=== PATIENT | female | born 1965 | race Caucasian/White ===

== ENCOUNTER 2017-11-22 18:24 | Emergency (ER) | payer OTHER ==
--- OUTSIDE RECORDS SUMMARY | 2017-11-22 18:26 | XMS REPORT ---
:1965 [facility] Address [address] [place] [address] [address] Care Team Providers Name Role Phone DR YEHUDA GONZALEZ Unavailable Unavailable Problems This patient has no known problems. Allergies, Adverse Reactions, Alerts This patient has no known allergies or adverse reactions. Medications This patient has no known medications. Encounters Start End Encounter Admission Attending Care Care Encounter Date/Time Date/Time Type Type Clinicians Facility Department ID 2016-06-25 2016-06-25 Outpatient DENISE FLETCHER [facility] [place] [id number] 04:40:00 07:45:00 YEHUDA
[2017-11-22] MEDS ORDERED: NA CHLORIDE 0.9% 1,000 ML ONE (18:57)
[2017-11-22 19:05] LABS: Absolute Lymphocytes (CBC) 3.9 K/uL (0.7-4.9); Absolute Monocytes 0.5 K/uL (0.1-1.3); Absolute Neutrophil 6.3 K/uL (1.8-8.0); Basophils % 0.7 % (0-1.3); Eosinophils % 2.1 % (0-4.4); Hematocrit 39.7 % (36.0-45.0); Lymphocytes % 35.3 % (15.3-44.8); MCH 29.7 pg (27.0-35.0); MCV 87.2 fL (80-100); MPV 8.3 fL (7.6-11.3); Monocytes % 4.5 % (3.3-12.3); RBC Red Blood Cell Count 4.55 M/uL (3.86-4.86)
[2017-11-22 19:13] LABS: Bicarbonate 22 mEq/L (21-31); Glucose Level 120 mg/dL (65-120); Lipase 40 U/L (22-51); Potassium 3.3 mEq/L (3.6-5.0); Sodium Level 138 mEq/L (135-145)
[2017-11-22 19:19] LABS: ALT/SGPT 28 IU/L (10-60); AST/SGOT 30 IU/L (10-42); Albumin 4.2 g/dL (3.2-5.5); Alkaline Phosphatase 113 IU/L (42-121); BUN Blood Urea Nitrogen 14 mg/dL (6-20); Bilirubin Direct < 0.1 mg/dL (0-0.2); Bilirubin Total 0.6 mg/dL (0.3-1.2); Protein, Total 7.4 g/dL (6.0-8.3)
--- NOTE | 2017-11-22 19:31 | RAD REPORT ---
EXAM DESCRIPTION: RAD - Foot Right 3 View - 11/22/2017 7:20 pm CLINICAL HISTORY: Right foot pain status post injury FINDINGS: An oblique fracture involves the base of the first distal phalanx extending intraarticular ly. A nondisplaced fracture of the distal aspect of the first proximal phalanx is seen. No dislocation is noted
[2017-11-22 19:57] LABS: Urine Blood NEGATIVE (NEG); Urine Glucose NEGATIVE (NEG); Urine Protein NEGATIVE (NEG); Urine Specific Gravity 1.015 (1.005-1.030); Urine pH 8.5 (5.0-7.0)
[2017-11-22] MEDS ORDERED: FENTANYL CITR 100 MCG/2 ML ONE (20:03)
[2017-11-22] MEDS ORDERED: ONDANSETRON 4 MG/2 ML VIAL ONE (20:03)
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
[2017-11-22] MEDS ORDERED: CEFTRIAXONE/SWI 1gm 1 GM/10 ML SYR ONE (20:20)
[2017-11-22] MEDS ORDERED: POTASSIUM CL SA 10 MEQ TAB PO ONE (20:21)
[2017-11-22 21:18] VITALS: TEMP 98.8
[2017-11-22 21:21] VITALS: BP 141/83; O2SAT 99
== END 2017-11-22 21:01 | disposition home or self-care (01) ==
LOC: ER 18:24
DX: S92.424A Nondisplaced fracture of distal phalanx of right great toe, initial encounter for closed fracture (principal); S92.414A Nondisplaced fracture of proximal phalanx of right great toe, initial encounter for closed fracture; S20.219A Contusion of unspecified front wall of thorax, initial encounter; R10.819 Abdominal tenderness, unspecified site; E87.6 Hypokalemia; N30.90 Cystitis, unspecified without hematuria; V89.2XXA Person injured in unspecified motor-vehicle accident, traffic, initial encounter; Z88.1 Allergy status to other antibiotic agents; Z88.5 Allergy status to narcotic agent
CPT/HCPCS: 36415; 70450; 71260; 72125; 74177; 80048; 80076; 81003; 81025; 83690; 85025; 86850; 86900; 86901; 87086; 87088; 96361; 96365; 96375; 99284; J0696; J2405; J3010; J7030; Q9967

== ENCOUNTER 2018-06-01 08:06 | Emergency (ER) | payer OTHER ==
--- OUTSIDE RECORDS SUMMARY | 2018-06-01 08:08 | XMS REPORT ---
:1965 [facility] Address [address] [place] [address] [facility]. [address] [place] [address] Care Team Providers Name Role Phone DR YEHUDA GONZALEZ Unavailable Unavailable Problems This patient has no known problems. Allergies, Adverse Reactions, Alerts This patient has no known allergies or adverse reactions. Medications This patient has no known medications. Encounters Start End Encounter Admission Attending Care Care Encounter Date/Time Date/Time Type Type Clinicians Facility Department ID 2016-06-25 2016-06-25 Out[place] [facility] [place] [id number] 04:40:00 07:45:00 YEHUDA
[2018-06-01 08:51] LABS: Absolute Monocytes 0.5 K/uL (0.1-1.3); Absolute Neutrophil 6.2 K/uL (1.8-8.0); Basophils % 0.7 % (0-1.3); Eosinophils % 2.2 % (0-4.4); Hematocrit 41.9 % (36.0-45.0); Lymphocytes % 30.1 % (15.3-44.8); MCH 29.8 pg (27.0-35.0); MCV 87.2 fL (80-100); Monocytes % 4.9 % (3.3-12.3); RBC Red Blood Cell Count 4.81 M/uL (3.86-4.86)
[2018-06-01 08:55] LABS: Protime INR 0.92
--- NOTE | 2018-06-01 08:56 | RAD REPORT ---
EXAM DESCRIPTION: CT - Head Brain Wo Cont - 06/01/2018 8:45 am CLINICAL HISTORY: Dizziness COMPARISON: October 2017 TECHNIQUE: Computed axial tomography of the head was obtained. IV contrast was not requested. All CT scans are performed using dose optimization technique as appropriate and may include automated exposure control or mA/KV adjustment according to patient size. FINDINGS: An intracranial bleed is not seen . The ventricles are normal in caliber. No extra-axial fluid collection is noted. Fluid within the sinuses/ mastoids is not seen. IMPRESSION: No acute intracranial abnormality is seen. If patient's symptoms persist MRI of the bra in would be recommended.
[2018-06-01] MEDS ORDERED: NA CHLORIDE 0.9% 1,000 ML ONE (08:57)
[2018-06-01] MEDS ORDERED: MECLIZINE HCL 12.5 MG TAB ONE (08:57)
[2018-06-01] MEDS ORDERED: ONDANSETRON 4 MG/2 ML VIAL ONE (08:57)
[2018-06-01 09:06] LABS: BUN Blood Urea Nitrogen 12 mg/dL (7-18); Bicarbonate 22 mmol/L (21-32); Glucose Level 127 mg/dL (74-106); Magnesium 2.4 mg/dL (1.8-2.4); Potassium 4.2 mmol/L (3.5-5.1); Sodium Level 141 mmol/L (136-145); Troponin (Emerg Dept Use Only) < 0.02 ng/mL (0.0-0.045)
[2018-06-01 10:01] LABS: Urine Blood TRACE (NEG); Urine Glucose NEGATIVE (NEG); Urine Protein NEGATIVE (NEG); Urine Specific Gravity 1.015 (1.005-1.030)
[2018-06-01] MEDS ORDERED: DIAZEPAM 2 MG TABLET ONE (10:47)
--- NOTE | 2018-06-01 11:07 | RAD REPORT ---
EXAM DESCRIPTION: MRI - Brain Wo Cont - 06/01/2018 10:38 am CLINICAL HISTORY: Vertigo COMPARISON: June 01, [address] TECHNIQUE: Axial, sagittal, and coronal magnetic resonance images of the brain were obtained. Contra st was not requested FINDINGS: No abnormal signal is present within the brain. Diffusion-weighted/ADC mapping does not reveal evidence of acute infarction. The ventricles are normal caliber. An extra-axial fluid collection is not present Mucus retention cyst is seen within the maxillary sinuses. Mild prominence of the adenoids is seen. IMPRESSION: Unremarkable unenhanced brain MRI Mild prominence of the adenoids
--- NOTE | 2018-06-01 11:12 | EDPHYS ---
Physician Documentation [facility] Name: Víctor Alexis Age: 52 yrs Sex: Female : 1965 Arrival Date: 06/01/2018 Time: 08:07 Bed 7 Private MD: Neno Castorena ED Physician John Bond HPI: 06/01 08:36 This 52 yrs old Female presents to ER via Ambulatory with complaints of rn Dizziness. 08:36 The patient presents with sense of spinning. Onset: The symptoms/episode began/occurred rn this morning. Context: occurred at home, occurred while the patient was getting up from bed, just prior to the episode the patient experienced no apparent symptoms. Modifying factors: The symptoms are alleviated by holding head still, the symptoms are aggravated by movement of head, standing up, changing position. Severity of symptoms: At their worst the symptoms were moderate in the emergency department the symptoms have improved. The patient has not experienced similar symptoms in the past. REports immediately when waking up, turned, felt lightheaded, dizzy, worse with movement, intermittent, + nausea and feels unsteady, has never happened before. No other neurological complaint or problem. NO chest pain/sob.. 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 - Social history:: Smoking status: Patient/guardian denies using tobacco. - Ebola Screening: : Patient denies exposure to infectious person Patient denies travel to an Ebola-affected area in the 21 days before illness onset. - Family history:: not pertinent. - Hospitalizations: : No recent hospitalization is reported. ROS: 08:36 Constitutional: Negative for fever, chills, and weight loss, Eyes: Negative for injury, rn pain, redness, and discharge, Neck: Negative for injury, pain, and swelling, Cardiovascular: Negative for chest pain, palpitations, and edema, Respiratory: Negative for shortness of breath, cough, wheezing, and pleuritic chest pain, Abdomen/GI: Negative for abdominal pain, diarrhea, and constipation, MS/Extremity: Negative for injury and deformity, Skin: Negative for injury, rash, and discoloration, Neuro: Negative for headache, weakness, numbness, tingling, and seizure. Exam: 08:36 Constitutional: This is a well developed, well nourished patient who is awake, alert, rn and in no acute distress. Head/Face: Normocephalic, atraumatic. Eyes: Pupils equal round and reactive to light, extra-ocular motions intact. Lids and lashes normal. Conjunctiva and sclera are non-icteric and not injected. Cornea within normal limits. Periorbital areas with no swelling, redness, or edema. Neck: Trachea midline, no thyromegaly or masses palpated, and no cervical lymphadenopathy. Supple, full range of motion without nuchal rigidity, or vertebral point tenderness. No Meningismus. Cardiovascular: Regular rate and rhythm with a normal S1 and S2. No gallops, murmurs, or rubs. Normal PMI, no JVD. No pulse deficits. Respiratory: Lungs have equal breath sounds bilaterally, clear to auscultation and percussion. No rales, rhonchi or wheezes noted. No increased work of breathing, no retractions or nasal flaring. Abdomen/GI: soft, non-tender MS/ Extremity: Pulses equal, no cyanosis. Neurovascular intact. Full, normal range of motion. Equal circumference. Neuro: Awake and alert, GCS 15, oriented to person, place, time, and situation. Cranial nerves II-XII grossly intact. Motor strength 5/5 in all extremities. Sensory grossly intact. Cerebellar exam normal. Vital Signs: 08:16 BP 143 / 86; Pulse 72; Resp 18; Temp 98; Pulse Ox 98% on R/A; Weight 88.45 kg; bp 09:15 BP 122 / 72; Pulse 59; Resp 14; Pulse Ox 98% ; bp 10:44 BP 145 / 86; Pulse 59; Resp 16; Pulse Ox 97% ; bp 11:39 BP 137 / 79; Pulse 61; Resp 14; Pulse Ox 98% ; bp MDM: 08:10 Patient medically screened. rn 11:10 Differential diagnosis: CVA, generalized weakness, hypovolemia, idiopathic dizziness, rn near-syncope, vertigo. Data reviewed: vital signs, nurses notes, lab test result(s), radiologic studies, CT scan, MRI, and as a result, I will discharge patient. Counseling: I had a detailed discussion with the patient and/or guardian regarding: the historical points, exam findings, and any diagnostic results supporting the discharge/admit diagnosis, lab results, radiology results, the need for outpatient follow up, to return to the emergency department if symptoms worsen or persist or if there are any questions or concerns that arise at home. Response to treatment: the patient's symptoms have mildly improved after treatment, and as a result, I will discharge patient. Special discussion: I discussed with the patient/guardian in detail that at this point there is no indication for admission to the hospital. It is understood, however, that if the symptoms persist or worsen the patient needs to return immediately for re-evaluation. Based on the history and exam findings, there is no indication for further emergent testing or inpatient evaluation. I discussed with the patient/guardian the need to see the neurologist for further evaluation of the symptoms. 06/01 08:21 Order name: Basic Metabolic Panel; Complete Time: 09:12 rn 06/01 08:21 Order name: CBC with Diff; Complete Time: 08:59 rn 06/01 08:21 Order name: Magnesium; Complete Time: 09:12 rn 06/01 08:21 Order name: Protime (+inr); Complete Time: 08:59 rn 06/01 08:21 Order name: Ptt, Activated; Complete Time: 08:59 rn 06/01 08:21 Order name: Troponin (emerg Dept Use Only); Complete Time: 09:12 rn 06/01 08:21 Order name: CT Head Brain wo Cont; Complete Time: 08:59 rn 06/01 09:01 Order name: MRI - Brain Wo Cont; Complete Time: 11:10 rn 06/01 09:49 Order name: Urine Dipstick--Ancillary (enter results); Complete Time: 10:10 bd 06/01 09:49 Order name: Urine --Ancillary (enter results); Complete Time: 10:10 bd 06/01 08:21 Order name: EKG; Complete Time: 08:21 rn 06/01 08:21 Order name: Cardiac monitoring; Complete Time: 08:32 rn 06/01 08:21 Order name: EKG - Nurse/Tech; Complete Time: 08:32 rn 06/01 08:21 Order name: IV Saline Lock; Complete Time: 08:33 rn 06/01 08:21 Order name: Labs collected and sent; Complete Time: 08:33 rn 06/01 08:21 Order name: NPO; Complete Time: 08:33 rn 06/01 08:21 Order name: O2 Per Protocol; Complete Time: 08:33 rn 06/01 08:21 Order name: O2 Sat Monitoring; Complete Time: 08:32 rn 06/01 08:21 Order name: Urine Dipstick-Ancillary (obtain specimen); Complete Time: 09:45 rn Administered Medications: 08:56 Drug: Meclizine 50 mg Route: PO; bp 10:43 Follow up: Response: No adverse reaction bp 08:56 Drug: Zofran 4 mg Route: IVP; Site: left forearm; bp 10:43 Follow up: Response: No adverse reaction; Nausea is decreased bp 08:56 Drug: NS 0.9% 1000 ml Route: IV; Rate: 1000 ml; Site: left forearm; bp 11:38 Follow up: IV Status: Completed infusion; IV Intake: 1000ml bp 10:43 Drug: Valium 2 mg Route: PO; bp 11:38 Follow up: Response: Marked relief of symptoms bp Disposition: 06/01/18 11:11 Discharged to Home. Impression: Vertigo. - Condition is Stable. - Discharge Instructions: Benign Positional Vertigo, Vertigo. - Prescriptions for Zofran ODT 4 mg Oral tablet,disintegrating - place 1 tablet by TRANSLINGUAL route every 8 hours As needed; 20 tablet. Meclizine 25 mg Oral Tablet - take 1 tablet by ORAL route every 8 hours As needed; 30 tablet. - Medication Reconciliation Form, Thank You Letter, Antibiotic Education, Prescription Opioid Use form. - Follow up: Ryland Austin MD; When: As needed; Reason: Recheck today's complaints, Re-evaluation by your physician. - Problem is new. - Symptoms have improved. Signatures: Dispatcher [employer] EDMD John Bond MD MD rn Smirch, Shelby, RN RN ss Peltier, Brian, RN RN bp Corrections: (The following items were deleted from the chart) 11:39 11:11 06/01/2018 11:11 Discharged to Home. Impression: Vertigo. Condition is Stable. bp Forms are Medication Reconciliation Form, Thank You Letter, Antibiotic Education, Prescription Opioid Use. Follow up: Ryland Austin; When: As needed; Reason: Recheck today's complaints, Re-evaluation by your physician. Problem is new. Symptoms have improved. rn
--- NOTE | 2018-06-01 11:12 | ER ---
Nurse's Notes [facility] Name: Víctor Alexis Age: 52 yrs Sex: Female : 1965 Arrival Date: 06/01/2018 Time: 08:07 Bed 7 Private MD: Neno Castorena Diagnosis: Vertigo Presentation: 06/01 08:14 Presenting complaint: Patient states: dizziness that began suddenly this morning at ss approx [id number]. Pt reports that dizziness is worse when moving or turning head, followed by nausea. Transition of care: patient was not received from another setting of care. Onset of symptoms was June 01, 2018. Risk Assessment: Do you want to hurt yourself or someone else? Patient reports no desire to harm self or others. Initial Sepsis Screen: Does the patient meet any 2 criteria? No. Patient's initial sepsis screen is negative. Does the patient have a suspected source of infection? No. Patient's initial sepsis screen is negative. Care prior to arrival: None. 08:14 Method Of Arrival: Ambulatory ss 08:14 Acuity: BOWEN 3 ss Triage Assessment: 10:44 General: Appears in no apparent distress. comfortable, Behavior is cooperative, bp appropriate for age, anxious. 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 - Social history:: Smoking status: Patient/guardian denies using tobacco. - Ebola Screening: : Patient denies exposure to infectious person Patient denies travel to an Ebola-affected area in the 21 days before illness onset. - Family history:: not pertinent. - Hospitalizations: : No recent hospitalization is reported. Screenin:45 Abuse screen: Denies threats or abuse. Denies injuries from another. Nutritional bp screening: No deficits noted. Tuberculosis screening: No symptoms or risk factors identified. Fall Risk None identified. Assessment: 08:15 General: Appears in no apparent distress. comfortable, Behavior is cooperative, bp appropriate for age, anxious. Pain: Denies pain. Neuro: Level of Consciousness is awake, alert, obeys commands, Oriented to person, place, time, situation, Appropriate for age Reports dizziness. Cardiovascular: No deficits noted. Respiratory: Airway is patent Respiratory effort is even, unlabored, Respiratory pattern is regular, symmetrical. GI: No signs and/or symptoms were reported involving the gastrointestinal system. : No signs and/or symptoms were reported regarding the genitourinary system. EENT: No deficits noted. Derm: No deficits noted. Musculoskeletal: Circulation, motion, and sensation intact. Range of motion: intact in all extremities. 09:15 Reassessment: ALL CURRENT ORDERS COMPLETED, RESULTS PENDING. bp 09:45 Reassessment: PT TO MRI. bp 11:38 Reassessment: PT D/C HOME WITH FAMILY, DX WITH VERTIGO. bp Vital Signs: 08:16 BP 143 / 86; Pulse 72; Resp 18; Temp 98; Pulse Ox 98% on R/A; Weight 88.45 kg; bp 09:15 BP 122 / 72; Pulse 59; Resp 14; Pulse Ox 98% ; bp 10:44 BP 145 / 86; Pulse 59; Resp 16; Pulse Ox 97% ; bp 11:39 BP 137 / 79; Pulse 61; Resp 14; Pulse Ox 98% ; bp ED Course: 08:07 Patient arrived in ED. sb2 08:07 Neno Castorena MD is Private Physician. sb2 08:10 John Bond MD is Attending Physician. rn 08:11 Pedro Alvarez RN is Primary Nurse. bp 08:15 Triage completed. ss 08:16 Arm band placed on right wrist. ss 08:30 Inserted saline lock: 20 gauge in left forearm, using aseptic technique. Blood bp collected. 08:34 EKG done, by pharmacy technician program director. reviewed by John Bond MD. at1 08:46 CT Head Brain wo Cont In Process Unspecified. EDMS 09:58 Patient moved to MRI via wheelchair. lc 10:36 MRI - Brain Wo Cont In Process Unspecified. EDMS 10:42 Patient moved back from MRI. lc 10:45 Patient has correct armband on for positive identification. Bed in low position. Call bp light in reach. Side rails up X2. 10:45 No provider procedures requiring assistance completed. bp 11:10 Ryland Austin MD is Referral Physician. rn 11:37 IV discontinued, intact, bleeding controlled, No redness/swelling at site. Pressure bp dressing applied. Administered Medications: 08:56 Drug: Meclizine 50 mg Route: PO; bp 10:43 Follow up: Response: No adverse reaction bp 08:56 Drug: Zofran 4 mg Route: IVP; Site: left forearm; bp 10:43 Follow up: Response: No adverse reaction; Nausea is decreased bp 08:56 Drug: NS 0.9% 1000 ml Route: IV; Rate: 1000 ml; Site: left forearm; bp 11:38 Follow up: IV Status: Completed infusion; IV Intake: 1000ml bp 10:43 Drug: Valium 2 mg Route: PO; bp 11:38 Follow up: Response: Marked relief of symptoms bp Intake: 11:38 IV: 1000ml; Total: 1000ml. bp Outcome: 11:11 Discharge ordered by MD. rn 11:37 Discharged to home via wheelchair, with family. bp 11:37 Condition: stable 11:37 Discharge instructions given to patient, Instructed on discharge instructions, follow up and referral plans. medication usage, Demonstrated understanding of instructions, follow-up care, medications, Prescriptions given X 2. 11:39 Patient left the ED. bp Signatures: Dispatcher [employer] EDMS Kathy Westbrook Roman, MD MD rn Smirch, Shelby, RN RN ss Trisha Qureshi, furnace packer EKG Tat1 Pedro Alvarez RN RN bp Zenaida Villeda sb2 Corrections: (The following items were deleted from the chart) 08:33 08:16 BP 143 / 86; Pulse 72bpm; Resp 18bpm; Pulse Ox 98% RA; ss bp 08:38 08:15 General: Appears bp bp
[2018-06-01 11:58] VITALS: TEMP 98
[2018-06-01 12:01] VITALS: BP 137/79; O2SAT 98
--- NOTE | 2018-06-01 13:31 | EKG ---
Test Date: 2018-06-01 Test Time: 08:28:42 Pattern Illustrator: ALF MEASUREMENT RESULTS: Intervals: Rate: 67 AL: 104 QRSD: 76 QT: 426 QTc: 450 Gilbert: P: 36 AL: 104 QRS: 50 T: 47 INTERPRETIVE STATEMENTS: Sinus rhythm with short AL Otherwise normal ECG Electronically Signed On 06-01-18 13:30:45 PL SQL PROGRAMMER by Reuben Irvin
== END 2018-06-01 11:39 | disposition home or self-care (01) ==
LOC: ER 08:06
DX: R42 Dizziness and giddiness (principal); Z88.1 Allergy status to other antibiotic agents; Z88.5 Allergy status to narcotic agent
CPT/HCPCS: 36415; 70450; 70551; 80048; 81003; 81025; 83735; 84484; 85025; 85610; 85730; 93005; 96361; 96374; 99284; J2405; J7030

== ENCOUNTER 2019-03-27 17:59 | Emergency (ER) | payer OTHER ==
--- OUTSIDE RECORDS SUMMARY | 2019-03-27 18:01 | XMS REPORT ---
:1965 [facility] Address [address] [place] [address] [address] Care Team Providers Name Role Phone DR YEHUDA GONZALEZ Unavailable Unavailable Problems This patient has no known problems. Allergies, Adverse Reactions, Alerts This patient has no known allergies or adverse reactions. Medications This patient has no known medications. Encounters Start End Encounter Admission Attending Care Care Encounter Date/Time Date/Time Type Type Clinicians Facility Department ID 2016-06-25 2016-06-25 Outpatient C DENISE GONZALEZ [facility] [id number] 04:40:00 07:45:00 YEHUDA
--- NOTE | 2019-03-27 19:02 | ER ---
Nurse's Notes [facility] Name: Víctor Alexis Age: 53 yrs Sex: Female : 1965 Arrival Date: 03/27/2019 Time: 18:01 Bed 7 Private MD: Diagnosis: Benign positional vertigo Presentation: 03/27 18:08 Presenting complaint: Patient states: dizziness started Wednesday, today "I hear a sv clicking in my head like your turning on a gas stove. I'm also having chest pain.". Transition of care: patient was not received from another setting of care. Onset of symptoms was March 25, 2019. Risk Assessment: Do you want to hurt yourself or someone else? Patient reports no desire to harm self or others. Care prior to arrival: None. 18:08 Method Of Arrival: Ambulatory sv 18:08 Acuity: BOWEN 2 sv 18:17 Initial Sepsis Screen: Does the patient meet any 2 criteria? No. Patient's initial hj sepsis screen is negative. Does the patient have a suspected source of infection? No. Patient's initial sepsis screen is negative. Triage Assessment: 18:08 General: Appears in no apparent distress. uncomfortable, Behavior is calm, cooperative, sv appropriate for age. Pain: Complains of pain in chest. Neuro: Level of Consciousness is awake, alert, obeys commands, Oriented to person, place, time, situation, Moves all extremities. Neuro: Reports dizziness. Respiratory: Respiratory effort is even, unlabored, Respiratory pattern is regular, symmetrical. 18:17 General: Appears in no apparent distress. uncomfortable, Behavior is calm, cooperative, hj appropriate for age. Pain: Complains of pain in chest. Historical: - Allergies: 18:10 Levaquin; sv 18:10 Morphine; sv - PMHx: 18:10 Anxiety; Bipolar disorder; sv - Immunization history:: Adult Immunizations up to date. - Social history:: Smoking status: Patient/guardian denies using tobacco, Patient/guardian denies using alcohol. - Ebola Screening: : Patient negative for fever greater than or equal to 101.5 degrees Fahrenheit, and additional compatible Ebola Virus Disease symptoms Patient denies exposure to infectious person Patient denies travel to an Ebola-affected area in the 21 days before illness onset. Screenin:17 Abuse screen: Denies threats or abuse. Denies injuries from another. Nutritional hj screening: No deficits noted. Tuberculosis screening: No symptoms or risk factors identified. Fall Risk None identified. Assessment: 19:10 General: Behavior is calm, cooperative, appropriate for age. Pain: Denies pain. Neuro: ea Level of Consciousness is awake, alert, obeys commands, Oriented to person, place, time, situation. Cardiovascular: Patient's skin is warm and dry. Respiratory: Airway is patent Respiratory effort is even, unlabored, Respiratory pattern is regular, symmetrical. Derm: Skin is pink, warm \\T\\ dry. 19:23 Reassessment: Patient and/or family updated on plan of care and expected duration. Pain ea level reassessed. Patient is alert, oriented x 3, equal unlabored respirations, skin warm/dry/pink. Discharge instruction given to patient, verbalized the understanding of instruction. Pt left ambulatory with significant other, tolerating well. Vital Signs: 18:10 BP 156 / 85; Pulse 91; Resp 22; Temp 97.4; Pulse Ox 100% ; Weight 99.79 kg; Height 5 sv ft. 7 in. (170.18 cm); 18:10 Body Mass Index 34.46 (99.79 kg, 170.18 cm) sv ED Course: 18:01 Patient arrived in ED. as 18:10 Triage completed. sv 18:10 Arm band placed on. sv 18:17 Kevin Marsh, RN is Primary Nurse. hj 18:17 Patient has correct armband on for positive identification. Bed in low position. Call hj light in reach. Side rails up X 1. Adult w/ patient. 18:19 Lev Graves MD is Attending Physician. ps1 19:00 Ryland Austin MD is Referral Physician. ps1 19:24 No provider procedures requiring assistance completed. Patient did not have IV access ea during this emergency room visit. Administered Medications: 19:21 CANCELLED (Other Intervention Used): Decadron 10 mg IM once ea 19:22 Drug: Decadron 10 mg Route: PO; ea 19:25 Follow up: Response: Medication administered at discharge. ea Outcome: 19:00 Discharge ordered by . ps1 19:24 Discharged to home ambulatory. ea 19:24 Condition: stable 19:24 Discharge instructions given to patient, Instructed on discharge instructions, follow up and referral plans. medication usage, Demonstrated understanding of instructions, follow-up care, medications, Prescriptions given X 1. 19:25 Patient left the ED. kelli Signatures: Marcelle Pfeiffer RN RN sv Martinez, Amelia as Joaquin, Henry, RN RN hj Antunez, Elena, RN RN ea Singer, Phillip, MD MD ps1 Corrections: (The following items were deleted from the chart) 18:20 18:08 Presenting complaint: Patient states: dizziness started Wednesday, today "I hear a sv clicking in my head like your turning on a gas stove. I'm also have chest pain." sv
--- NOTE | 2019-03-27 19:03 | EDPHYS ---
Physician Documentation [facility] Name: Víctor Alexis Age: 53 yrs Sex: Female : 1965 Arrival Date: 03/27/2019 Time: 18:01 Bed 7 Private MD: ED Physician Lev Graves HPI: 03/27 18:50 This 53 yrs old Female presents to ER via Ambulatory with complaints of ps1 Vertigo. 18:50 patient has a known history of BPPV treated with meclizine and zofran. She has taken ps1 medication multiple times today. Symptoms precipitated after flying back from [place]. Likely 2/2 change in pressure. Pt complaining of room spinning and nausea. . Historical: - Allergies: 18:10 Levaquin; sv 18:10 Morphine; sv - PMHx: 18:10 Anxiety; Bipolar disorder; sv - Immunization history:: Adult Immunizations up to date. - Social history:: Smoking status: Patient/guardian denies using tobacco, Patient/guardian denies using alcohol. - Ebola Screening: : Patient negative for fever greater than or equal to 101.5 degrees Fahrenheit, and additional compatible Ebola Virus Disease symptoms Patient denies exposure to infectious person Patient denies travel to an Ebola-affected area in the 21 days before illness onset. ROS: 18:50 Constitutional: Negative for fever, chills, and weight loss, Eyes: Negative for injury, ps1 pain, redness, and discharge, Cardiovascular: Negative for chest pain, palpitations, and edema, Respiratory: Negative for shortness of breath, cough, wheezing, and pleuritic chest pain, Abdomen/GI: Negative for abdominal pain, nausea, vomiting, diarrhea, and constipation, MS/Extremity: Negative for injury and deformity, Skin: Negative for injury, rash, and discoloration. 18:50 ENT: Positive for ear pain. 18:50 Neuro: Positive for dizziness. Exam: 18:50 Constitutional: This is a well developed, well nourished patient who is awake, alert, ps1 and in no acute distress. Head/Face: Normocephalic, atraumatic. Eyes: Pupils equal round and reactive to light, extra-ocular motions intact. Lids and lashes normal. Conjunctiva and sclera are non-icteric and not injected. ENT: Nares patent. No nasal discharge, no septal abnormalities noted. Tympanic membranes are normal and external auditory canals are clear. Oropharynx with no redness, swelling, or masses, exudates, or evidence of obstruction, uvula midline. Mucous membranes moist. Cardiovascular: Regular rate and rhythm. No gallops, murmurs, or rubs. Normal PMI, no JVD. No pulse deficits. Respiratory: Lungs have equal breath sounds bilaterally, clear to auscultation and percussion. No rales, rhonchi or wheezes noted. No increased work of breathing, no retractions or nasal flaring. Abdomen/GI: Soft, non-tender, with normal bowel sounds. No distension or tympany. No guarding or rebound. No evidence of tenderness throughout. Back: No spinal tenderness. No costovertebral tenderness. Full range of motion. Skin: Warm, dry with normal turgor. Normal color with no rashes, no lesions, and no evidence of cellulitis. 18:50 Neuro: HINTS exam. head impulse did not demonstrate saccade. Nystagmus is gaze evoked to left in fast phase and none to right. Test of skew did not demonstrate disconjugate gaze. c/w left peripheral nerve pathology. No concern for central cause.. Vital Signs: 18:10 BP 156 / 85; Pulse 91; Resp 22; Temp 97.4; Pulse Ox 100% ; Weight 99.79 kg; Height 5 sv ft. 7 in. (170.18 cm); 18:10 Body Mass Index 34.46 (99.79 kg, 170.18 cm) sv MDM: 18:45 Patient medically screened. ps1 18:59 Data reviewed: vital signs, nurses notes, and as a result, I will discharge patient. ps1 Counseling: I had a detailed discussion with the patient and/or guardian regarding: the historical points, exam findings, and any diagnostic results supporting the discharge/admit diagnosis, explained amanda maneuver. Had patient perform in ED. Home with follow up with PCP. Will refer to neurology for further workup as deemed necessary. 03/27 18:20 Order name: EKG - Nurse/Tech; Complete Time: 18:21 hj Administered Medications: 19:21 CANCELLED (Other Intervention Used): Decadron 10 mg IM once ea 19:22 Drug: Decadron 10 mg Route: PO; ea 19:25 Follow up: Response: Medication administered at discharge. ea Disposition: 03/27/19 19:00 Discharged to Home. Impression: Benign positional vertigo. - Condition is Stable. - Discharge Instructions: Benign Positional Vertigo, Amanda Maneuver Self-Care. - Medication Reconciliation Form, Thank You Letter, Antibiotic Education, Prescription Opioid Use form. - Follow up: Ryland Austin MD; When: 1 week; Reason: Further diagnostic work-up, Recheck today's complaints, Continuance of care. Follow up: Emergency Department; When: As needed; Reason: Fever > 102 F, Worsening of condition. - Problem is an acute exacerbation. - Symptoms have improved. Signatures: Marcelle Pfeiffer RN Kevin Alcocer RN Nargis Sher RN RN ea Singer, Phillip, MD MD ps1 Corrections: (The following items were deleted from the chart) 19:01 19:00 03/27/2019 19:00 Discharged to Home. Impression: Benign positional vertigo. ps1 Condition is Stable. Forms are Medication Reconciliation Form, Thank You Letter, Antibiotic Education, Prescription Opioid Use. Follow up: Ryland Austin; When: 1 week; Reason: Further diagnostic work-up, Recheck today's complaints, Continuance of care. ps1 19:01 19:01 03/27/2019 19:00 Discharged to Home. Impression: Benign positional vertigo. ps1 Condition is Stable. Forms are Medication Reconciliation Form, Thank You Letter, Antibiotic Education, Prescription Opioid Use. Follow up: Ryland Austin; When: 1 week; Reason: Further diagnostic work-up, Recheck today's complaints, Continuance of care. Follow up: Emergency Department; When: As needed; Reason: Fever > 102 F, Worsening of condition. ps1 19:21 19:17 Decadron 10 mg IM once ordered. ea ea 19:25 19:01 03/27/2019 19:00 Discharged to Home. Impression: Benign positional vertigo. ea Condition is Stable. Forms are Medication Reconciliation Form, Thank You Letter, Antibiotic Education, Prescription Opioid Use. Follow up: Ryland Austin; When: 1 week; Reason: Further diagnostic work-up, Recheck today's complaints, Continuance of care. Follow up: Emergency Department; When: As needed; Reason: Fever > 102 F, Worsening of condition. Problem is an acute exacerbation. Symptoms have improved. ps1
[2019-03-27] MEDS ORDERED: dexAMETHasone 4 MG TAB ONE (19:17)
[2019-03-27 19:31] VITALS: BP 156/85; TEMP 97.4; O2SAT 100
--- NOTE | 2019-03-28 17:37 | EKG ---
Test Date: 2019-03-27 Test Time: 18:17:59 Spice Cleaner: ASIM MEASUREMENT RESULTS: Intervals: Rate: 84 TN: 158 QRSD: 76 QT: 390 QTc: 460 [place]: P: 69 TN: 158 QRS: 53 T: 59 INTERPRETIVE STATEMENTS: Normal sinus rhythm Nonspecific T wave abnormality Prolonged QT Abnormal ECG Compared to ECG 06/01/2018 08:28:42 T-wave abnormality now present Prolonged QT interval now present Short TN interval no longer present Electronically Signed On 03-28-19 17:35:03 CDT by Coy Alexander
== END 2019-03-27 19:25 | disposition home or self-care (01) ==
LOC: ER 17:59
DX: H81.10 Benign paroxysmal vertigo, unspecified ear (principal); Z88.1 Allergy status to other antibiotic agents; Z88.5 Allergy status to narcotic agent
CPT/HCPCS: 93005; 99283

== ENCOUNTER 2019-11-03 19:23 | Emergency (ER) | payer OTHER ==
--- OUTSIDE RECORDS SUMMARY | 2019-11-03 19:26 | XMS REPORT ---
:1965 Author Organization [facility] t Address [address] [place] [address] [address]. [address] [place] [address] Care Team Providers Name Role Phone DR LISA Unavailable Unavailable Payers Payer Name Policy Type Policy Number Effective Date Expiration D ate Problems This patient has no known problems. Allergies, Adverse Reactions, Alerts Allergy Name Allergy Status Severity Reaction(s) Onset Inactive Treat ing Comments Type Date Date Clinician cephalexin DA Active 2019-03 00:00:0 0 levofloxacin DA Active 2019-03 00:00:0 0 Medications This patient has no known medications. Encounters Start End Encounter Admission Attending Care Care Encounter Date/Time Date/Time Type Type Clinicians Facility Department ID 2016-06-25 2016-06-25 Outpatient Sintia [facility] [id number] 04:40:00 07:45:00 YEHUDA Results Test Description Test Time Test Comments Text Results Atomic Results Result Comments - XR KNEE 1 OR 2 V RT 2019-05-10 18:12:00 Patient Nam e: CHEMO TONG Unit No: [id number] EXAMS: CPT CODE: [id number] XR KNEE 1 OR 2 [place] [id number] PREMA GES PROVIDED: 2 FI NDINGS: Postoperative changes from right total knee arthoplasty demon strated without evidence of immedi ate complication. No acute fract ure is visualized. IMPRESSION: Postoper ative exam as above. at 1812 Reported and signed by: Jay Valdivia M.D. CC: Nitin Messina MD Technologist: ANAT TARANGO (RT.R) Transcribed D/ 19 (1811) MelvinSLJ [facility] NAME: CHEMO TONG [address] [facility] PHYS: Geremias Mittal MD : 1965 AGE: 53 SEX: F [place] [address] LOC: Julien [facility] PHONE #: [phone] EXAM DATE: 05/09/2019 STATUS : [facility] FAX #: [phone] RAD #: D/C DT PAGE 1 Signed Report Patient Name: CHEMO TONG Unit No: [id number] EXAMS: CPT CODE: [id number] XR KNEE 1 OR 2 V RT [id number] <Contin ued> Orig Print D/T: S: 05/10/2019 (18 15) [facility] NAME: CHEMO TONG [address] [facility] PHYS: Geremias Mittal MD : 1965 AGE: 53 SEX: F [place] [address] LOC: Y CristaDSU PHONE #: [phone] EXAM DATE: 05/09/2019 STATUS : [facility] FAX #: [phone] RAD #: D/C DT PAGE 2 Signed Report BASIC METABOLIC PANEL 2019-05-10 07:08:00 Test Item Value Reference Range Comments SODIUM (test code = NA) 138 mmol/L 136-145 POTASSIUM (test code = K) 5.4 mmol/L 3.5-5.1 CHLORIDE (test code = CL) 102.0 mmol/L 98-107 CARBON DIOXIDE (test code = CO2) 25.2 mmol/L 21-32 GLUCOSE (test code = GLU) 151 mg/dL 70-110 BLOOD UREA NITROGEN (test code = 24 mg/dL 7-18 BUN) GLOMERULAR FILTRATION RATE (test 54.6 >60 Unit of measure: mL/min/1.73 code = GFR) [id number] Rang e:Healthy Adults >90 mL/min/1.73 m2 F or Chronic Kidney Disease: Stage II Mild Decrease in GFR 60-90 Stage III Moderate Decreas e in GFR 30-59 Stage IV Severe Decrease in GFR 15-29 Stage V Kid oziel Failure <15 CREATININE (test code = CREAT) 1.05 mg/dL 0.55-1.30 CALCIUM (test code = CA) 8.8 mg/dL 8.2-10.1 HGB [id number] 05:46:00 Test Item Value Reference Range Comments HEMOGLOBIN (test code = HGB) 11.2 g/dL 12-16 HEMATOCRIT (test code = HCT) 34.3 % 37-47 COMPREHENSIVE METABOLIC [id number] 10:28:00 Test Item Value Reference Range Comments SODIUM (test code = NA) 142 mmol/L 134-144 POTASSIUM (test code = K) 4.2 mmol/L 3.5-5.2 CHLORIDE (test code = CL) 102 mmol/L 96-106 CARBON DIOXIDE (test code = 22 mmol/L 20-29 Perf ormed At: HD [facility] CO2) [id number] [place] [id number] Harish Urbina MD Ph:[phone] GLUCOSE (test code = GLU) 109 mg/dL 65-99 BLOOD UREA NITROGEN (test code 14 mg/dL 6-24 = BUN) GLOMERULAR FILTRATION RATE >60 Unit of measure: (test code = GFR) mL/min/1.73 m2 Reference Range:Healthy Ad ults >90 mL/min/1.7 3 m2 For Chronic Kidney D isease: Stage II Mil d Decrease in GFR 60 -90 Stage III Mod erate Decrease in GFR 30-59 Stage IV Se mireya Decrease in GFR 15-29 Stage V Kidney Failure <15 CREATININE (test code = CREAT) 0.8 mg/dL 0.57-1.00 TOTAL PROTEIN (test code = 6.8 g/dL 6.0-8.5 PROT) ALBUMIN (test code = ALB) 4.5 g/dL 3.5-5.5 GLOBULIN (test code = GLOB) 2.3 g/dL 2.2-4.2 ALBUMIN/GLOBULIN RATIO (test 2.0 1.2-2.2 code = A/G) CALCIUM (test code = CA) 9.4 mg/dL 8.7-10.2 BILIRUBIN TOTAL (test code = < 0.2 mg/dL 0.0-1.2 BILT) SGOT/AST (test code = AST) 29 IU/L 0-40 SGPT/ALT (test code = ALT) 35.0 IU/L 0-32 ALKALINE PHOSPHATASE TOTAL 110 IU/L 39-117 (test code = ALKP) GROSSLY LIPEMIC. SPECIMEN SENT TO [facility].COMPREHENSIVE METABOLIC PANEL 2019-04-21 10:28:00 Test Item Value Reference Range Comments SODIUM (test code = NA) 142 mmol/L 134-144 POTASSIUM (test code = K) 4.2 mmol/L 3.5-5.2 CHLORIDE (test code = CL) 102 mmol/L 96-106 CARBON DIOXIDE (test code = 22 mmol/L 20-29 Perf ormed At: HD [facility] CO2) [id number] [facility] [place] [id number] Harish Urbina MD Ph:[phone] GLUCOSE (test code = GLU) 109 mg/dL 65-99 BLOOD UREA NITROGEN (test code 14 mg/dL 6-24 = BUN) GLOMERULAR FILTRATION RATE 74.7 >60 Unit of measure: (test code = GFR) mL/min/1.73 m2 Reference Range:Healthy Ad ults >90 mL/min/1.7 3 m2 For Chronic Kidney D isease: Stage II Mil d Decrease in GFR 60 -90 Stage III Mod erate Decrease in GFR 30-59 Stage IV Se mireya Decrease in GFR 15-29 Stage V Kidney Failure <15 CREATININE (test code = CREAT) 0.8 mg/dL 0.57-1.00 TOTAL PROTEIN (test code = 6.8 g/dL 6.0-8.5 PROT) ALBUMIN (test code = ALB) 4.5 g/dL 3.5-5.5 GLOBULIN (test code = GLOB) 2.3 g/dL 2.2-4.2 ALBUMIN/GLOBULIN RATIO (test 2.0 1.2-2.2 code = A/G) CALCIUM (test code = CA) 9.4 mg/dL 8.7-10.2 BILIRUBIN TOTAL (test code = < 0.2 mg/dL 0.0-1.2 BILT) SGOT/AST (test code = AST) 29 IU/L 0-40 SGPT/ALT (test code = ALT) 35.0 IU/L 0-32 ALKALINE PHOSPHATASE TOTAL 110 IU/L 39-117 (test code = ALKP) GROSSLY LIPEMIC. SPECIMEN SENT TO [facility].CBC W/AUTO [id number] 17:03:00 Test Item Value Reference Range Comments WHITE BLOOD CELL (test code = WBC) 9.0 K/mm3 5.8-11.0 RED BLOOD CELL (test code = RBC) 4.49 M/mm3 4.2-5.4 HEMOGLOBIN (test code = HGB) 13.4 g/dL 12-16 HEMATOCRIT (test code = HCT) 38.2 % 37-47 MEAN CELL VOLUME (test code = MCV) 85 fL 80-98 MEAN CELL HGB (test code = MCH) 29.8 pg 27-34 MEAN CELL HGB CONCENTRATION (test code = MCHC) 35.1 g/dL 3 0.8-34.1 RED CELL DISTRIBUTION WIDTH (test code = RDW) 13.2 % 11 -16 PLT (test code = PLT) 290 K/mm3 130-400 MEAN PLATELET VOLUME (test code = MPV) 10.2 fL 8.9-12.1 NEUTROPHIL % (test code = NT%) 43.5 % 45-70 LYMPHOCYTE % (test code = LY%) 48.1 % 20-40 MONOCYTE % (test code = MO%) 5.8 % 3-10 EOSINOPHIL % (test code = EO%) 2.0 % 1-5 BASOPHIL % (test code = BA%) 0.4 % 0.0-1.1 NEUTROPHIL # (test code = NT#) 3.91 K/mm3 2.00-7.50 LYMPHOCYTE # (test code = LY#) 4.33 K/mm3 1.50-4.00 MONOCYTE # (test code = MO#) 0.52 K/mm3 0.2-0.8 EOSINOPHIL # (test code = EO#) 0.18 K/mm3 0.04-0.4 BASOPHIL # (test code = BA#) 0.04 K/mm3 0.02-0.10 MANUAL DIFF REQUIRED (test code = MDIFF) NO MANUAL DIFF NUCLEATED RED BLOOD CELL (test code = NRBC) 0 % 0-0
[2019-11-03] MEDS ORDERED: NA CHLORIDE 0.9% 250 ML ONE (20:16)
[2019-11-03] MEDS ORDERED: AZITHROMYCIN 500 MG INJ IVPB ONE (20:16)
[2019-11-03] MEDS ORDERED: ACETAMINOPHEN 500 MG TAB ONE (20:16)
[2019-11-03] MEDS ORDERED: CEFTRIAXONE/SWI 1gm 1 GM/10 ML SYR ONE (20:17)
[2019-11-03] MEDS ORDERED: NA CHLORIDE 0.9% 3,000 ML ONE (20:17)
--- NOTE | 2019-11-03 20:35 | RAD REPORT ---
EXAM DESCRIPTION: RAD - Chest Single View - 11/03/2019 8:22 pm CLINICAL HISTORY: COUGH Chest pain. COMPARISON: Chest Pa And Lat (2 Views) dated 10/06/2019; Chest Pa And Lat (2 Views) dated 07/25/2017; Chest Pa And Lat (2 Views) dated 01/29/2016; CHEST PA AND LAT 2 VIEW dated 05/21/2010 FINDINGS: Portable technique limits examination quality. The lungs are grossly clear. The heart is normal in size. No displaced fractures. IMPRESSION: No acute intrathoracic process suspected.
[2019-11-03 20:57] LABS: Absolute Lymphocytes (CBC) 5.1 K/uL (0.7-4.9); Basophils % 0.9 % (0-1.3); Hematocrit 39.5 % (36.0-45.0); Lymphocytes % 42.5 % (15.3-44.8); MPV 7.9 fL (7.6-11.3); RBC Red Blood Cell Count 4.55 M/uL (3.86-4.86)
[2019-11-03 21:00] LABS: Protime INR 0.92
[2019-11-03 21:18] LABS: ALT/SGPT 59 U/L (12-78); AST/SGOT 34 U/L (15-37); Albumin 3.7 g/dL (3.4-5.0); Alkaline Phosphatase 126 U/L (45-117); Amylase Level 51 U/L (25-115); BUN Blood Urea Nitrogen 8 mg/dL (7-18); Bicarbonate 25 mmol/L (21-32); Bilirubin Direct < 0.1 mg/dL (0-0.2); Bilirubin Total 0.3 mg/dL (0.2-1.0); CKMB Creatine Kinase MB < 1.0 ng/mL (0.3-3.6); Creatine Phosphokinase 103 U/L (26-192); Glucose Level 94 mg/dL (74-106); Lipase 196 U/L (73-393); Magnesium 2.3 mg/dL (1.8-2.4); NT PRO-BNP 145 pg/mL (<125); Potassium 4.1 mmol/L (3.5-5.1); Protein, Total 7.4 g/dL (6.4-8.2); Sodium Level 142 mmol/L (136-145); Troponin (Emerg Dept Use Only) < 0.02 ng/mL (0.0-0.045)
[2019-11-03 22:12] LABS: Urine Bacteria NONE SEEN /HPF (<20); Urine Culture Reflex Order NOT NEEDED; Urine Mucus 1+ /HPF (NONE SEEN)
--- NOTE | 2019-11-03 22:12 | ER ---
Nurse's Notes [facility] Name: Víctor Alexis Age: 54 yrs Sex: Female : 1965 Arrival Date: 11/03/2019 Time: 19:25 Bed 16 Private MD: Diagnosis: Fever, unspecified;Cough;Diarrhea, unspecified;Urinary tract infection, site not specified Presentation: 11/02 19:35 Chief complaint: Patient states: Cough, fever and diarrhea x 2 days. Coronavirus ca1 screen: Surgical mask placed on patient. Patient moved to private room, placed in contact and droplet isolation with eye protection until further assessment. Patient reports a cough. Patient denies shortness of breath or difficulty breathing. Patient reports a measured and/or subjective temperature greater than 100.4F. Patient reports travel on a cruise ship or to a country the [facility] currently lists as an affected area. Patient denies contact with known and/or suspected case of COVID-19. Ebola Screen: Patient negative for fever greater than or equal to 101.5 degrees Fahrenheit, and additional compatible Ebola Virus Disease symptoms Patient denies exposure to infectious person. Patient denies travel to an Ebola-affected area in the 21 days before illness onset. No symptoms or risks identified at this time. Initial Sepsis Screen: Does the patient meet any 2 criteria? No. Patient's initial sepsis screen is negative. Does the patient have a suspected source of infection? No. Patient's initial sepsis screen is negative. Risk Assessment: Do you want to hurt yourself or someone else? Patient reports no desire to harm self or others. Onset of symptoms was November 03, 2019. 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 N/A - Hysterectomy ca1 Historical: - Allergies: 19:43 Levaquin; ca1 19:43 Morphine; ca1 - Home Meds: 19:43 lithium carbonate 300 mg Oral tab 1 tab 3 times per day [Active]; venlafaxine 150 mg ca1 oral cp24 1 cap twice a day [Active]; zaleplon 10 mg oral cap 1 cap nightly [Active]; quetiapine 50 mg oral tab 1 tab 2 times per day [Active]; hydroxyzine HCl 25 mg Oral tab 1 tab [Active]; alprazolam 0.25 mg Oral tab 1 tab [Active]; Albuterol Inhl [Active]; - PMHx: 19:43 Anxiety; Bipolar disorder; Diabetes - NIDDM; ca1 - PSHx: 19:43 Appendectomy; Hysterectomy; Hernia repair; ca1 - Immunization history:: Adult Immunizations up to date, Flu vaccine is up to date. - Social history:: Smoking status: Patient/guardian denies using tobacco, the patient reports quitting approximately 8 years ago. - Family history:: not pertinent. Screenin:00 Abuse screen: Denies threats or abuse. Nutritional screening: No deficits noted. jb4 Tuberculosis screening: No symptoms or risk factors identified. Fall Risk None identified. Assessment: 20:00 General: Appears in no apparent distress. uncomfortable, Behavior is calm, cooperative, jb4 appropriate for age. Pain: Denies pain. Neuro: Level of Consciousness is awake, alert, obeys commands, Oriented to person, place, time, situation. Cardiovascular: Patient's skin is warm and dry. Respiratory: Airway is patent Respiratory effort is even, unlabored, Respiratory pattern is regular, symmetrical, Breath sounds are clear bilaterally. GI: Abdomen is non-distended, obese, Reports diarrhea. : No signs and/or symptoms were reported regarding the genitourinary system. EENT: No signs and/or symptoms were reported regarding the EENT system. Derm: Skin is intact, Skin is pink, warm \T\ dry. Musculoskeletal: Circulation, motion, and sensation intact. Range of motion: intact in all extremities. 21:00 Reassessment: Patient appears in no apparent distress at this time. Patient and/or jb4 family updated on plan of care and expected duration. Pain level reassessed. Patient is alert, oriented x 3, equal unlabored respirations, skin warm/dry/pink. 22:25 Reassessment: Patient appears in no apparent distress at this time. Patient and/or jb4 family updated on plan of care and expected duration. Pain level reassessed. Patient is alert, oriented x 3, equal unlabored respirations, skin warm/dry/pink. Pt reports increased dizziness and SOB upon performing orthostatic blood pressures. Provider notified, provider reports wanting the patient to finish IV bolus and be discharged. 23:00 Reassessment: Patient appears in no apparent distress at this time. Patient and/or jb4 family updated on plan of care and expected duration. Pain level reassessed. Patient is alert, oriented x 3, equal unlabored respirations, skin warm/dry/pink. PT verbalized understanding of d/c and follow up instructions. Denies questions or concerns. Ambulated out of ED with steady gait. Vital Signs: 19:35 BP 141 / 91; Pulse 84; Resp 18 S; Temp 99.7(O); Pulse Ox 98% on R/A; Weight 99.79 kg ca1 (R); Height 5 ft. 8 in. (172.72 cm) (R); Pain 0/10; 21:09 BP 147 / 91; Pulse 79; Resp 18; Pulse Ox 97% on R/A; jb4 21:45 BP 129 / 71; Pulse 89; Resp 17; Temp 97.1(TE); Pulse Ox 97% on R/A; jb4 22:19 BP 110 / 80 RA Supine; Pulse 85; Resp 19; Pulse Ox 94% on R/A; jb4 22:20 BP 123 / 91 RA Sitting; Pulse 80; Resp 22; Pulse Ox 95% on R/A; jb4 22:22 BP 116 / 75 RA Standing; Pulse 87; Resp 21; Pulse Ox 96% on R/A; jb4 19:35 Body Mass Index 33.45 (99.79 kg, 172.72 cm) ca1 ED Course: 19:25 Patient arrived in ED. cl3 19:37 Triage completed. ca1 19:43 Arm band placed on right wrist. ca1 19:46 Scot Garcia, RN is Primary Nurse. jb4 19:51 Ashok Jurado MD is Attending Physician. tia 20:00 Patient has correct armband on for positive identification. Bed in low position. Call jb4 light in reach. Side rails up X 1. administrative technician on. Pulse ox on. NIBP on. 20:22 XRAY Chest (1 view) In Process Unspecified. EDMS 20:30 Inserted saline lock: 18 gauge in left antecubital area, using aseptic technique. Blood jb4 collected. 20:30 First set of blood cultures drawn by me, Flu and/or RSV swab sent to lab. Strep swab jb4 sent to lab. 20:45 Second set of blood cultures drawn by me, EKG done, by ED staff. jb4 23:00 No provider procedures requiring assistance completed. IV discontinued, intact, jb4 bleeding controlled, No redness/swelling at site. Pressure dressing applied. 11/03 10:02 Health Dept notified/ COVID test sent to lab/ PUI # [id number]/ lab notified. eb Administered Medications: 11/02 20:30 Drug: Tylenol 1000 mg Route: PO; jb4 22:00 Follow up: Response: No adverse reaction; Temperature is decreased jb4 20:45 Drug: NS 0.9% (30 ml/kg) 30 ml/kg Route: IV; Rate: bolus; Site: left antecubital; jb4 23:00 Follow up: Response: No adverse reaction; IV Status: IV fluids discontinued. PT jb4 partially D/C'ed own IV. Refused secondary IV to finish fluids.; IV Intake: 2300ml 20:45 Drug: Rocephin 1 grams Route: IV; Rate: per protocol; Site: left antecubital; jb4 20:47 Follow up: Response: No adverse reaction; IV Status: Completed infusion; IV Intake: [id number] 20:47 Drug: Zithromax 500 mg Route: IVPB; Infused Over: 1 hrs; Site: left antecubital; jb4 21:47 Follow up: Response: No adverse reaction; IV Status: Completed infusion; IV Intake: jb4 250ml Intake: 20:47 IV: 10ml; Total: 10ml. jb4 21:47 IV: 250ml; Total: 260ml. jb4 23:00 IV: 2300ml; Total: 2560ml. jb4 Outcome: 22:12 Discharge ordered by . tia 23:00 Discharged to home ambulatory, with family. jb4 23:00 Condition: stable 23:00 Discharge instructions given to patient, Instructed on discharge instructions, follow up and referral plans. medication usage, Demonstrated understanding of instructions, follow-up care, medications, Prescriptions given X 3. 23:02 Patient left the ED. jb4 Signatures: Dispatcher [employer] EDAshok Chino MD MD cha Bryson, James, RN RN jb4 Radha Ortiz Cheryl, RN RN Lea Arreguin cl3
[2019-11-03 22:13] LABS: Urine Blood NEGATIVE (NEG); Urine Glucose NEGATIVE (NEG); Urine Protein NEGATIVE (NEG); Urine Specific Gravity 1.025 (1.005-1.030)
--- NOTE | 2019-11-03 22:13 | EDPHYS ---
Physician Documentation [facility] Name: Víctor Alexis Age: 54 yrs Sex: Female : 1965 Arrival Date: 11/03/2019 Time: 19:25 Bed 16 Private MD: ED Physician Ashok Jurado HPI: 11/02 20:00 This 54 yrs old Female presents to ER via Ambulatory with complaints of tia Fever, Cough. 20:00 The patient reports fever, that was measured at 100 degrees Fahrenheit. Onset: The tia symptoms/episode began/occurred 3 day(s) ago. Modifying factors: there are no obvious modifying factors. Associated signs and symptoms: Pertinent positives: arthralgias, cough, decreased appetite, diarrhea. Severity of symptoms: At their worst the symptoms were mild in the emergency department the symptoms are unchanged. The patient has not experienced similar symptoms in the past. 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: 19:43 LMP N/A - Hysterectomy ca1 Historical: - Allergies: 19:43 Levaquin; ca1 19:43 Morphine; ca1 - Home Meds: 19:43 lithium carbonate 300 mg Oral tab 1 tab 3 times per day [Active]; venlafaxine 150 mg ca1 oral cp24 1 cap twice a day [Active]; zaleplon 10 mg oral cap 1 cap nightly [Active]; quetiapine 50 mg oral tab 1 tab 2 times per day [Active]; hydroxyzine HCl 25 mg Oral tab 1 tab [Active]; alprazolam 0.25 mg Oral tab 1 tab [Active]; Albuterol Inhl [Active]; - PMHx: 19:43 Anxiety; Bipolar disorder; Diabetes - NIDDM; ca1 - PSHx: 19:43 Appendectomy; Hysterectomy; Hernia repair; ca1 - Immunization history:: Adult Immunizations up to date, Flu vaccine is up to date. - Social history:: Smoking status: Patient/guardian denies using tobacco, the patient reports quitting approximately 8 years ago. - Family history:: not pertinent. ROS: 20:00 Eyes: Negative for injury, pain, redness, and discharge, ENT: Negative for injury, tia pain, and discharge, Neck: Negative for injury, pain, and swelling, Cardiovascular: Negative for chest pain, palpitations, and edema, Abdomen/GI: Negative for abdominal pain, nausea, vomiting, diarrhea, and constipation, Back: Negative for injury and pain, : Negative for injury, bleeding, discharge, and swelling, MS/Extremity: Negative for injury and deformity, Skin: Negative for injury, rash, and discoloration, Neuro: Negative for headache, weakness, numbness, tingling, and seizure, Psych: Negative for depression, anxiety, suicide ideation, homicidal ideation, and hallucinations, Allergy/Immunology: Negative for hives, rash, and allergies, Endocrine: Negative for neck swelling, polydipsia, polyuria, polyphagia, and marked weight changes, Hematologic/Lymphatic: Negative for swollen nodes, abnormal bleeding, and unusual bruising. 20:00 Constitutional: Positive for chills. 20:00 Respiratory: Positive for cough. 20:00 Abdomen/GI: Positive for diarrhea. Exam: 20:00 Constitutional: This is a well developed, well nourished patient who is awake, alert, tia and in no acute distress. Head/Face: Normocephalic, atraumatic. Eyes: Pupils equal round and reactive to light, extra-ocular motions intact. Lids and lashes normal. Conjunctiva and sclera are non-icteric and not injected. Cornea within normal limits. Periorbital areas with no swelling, redness, or edema. ENT: Nares patent. No nasal discharge, no septal abnormalities noted. Tympanic membranes are normal and external auditory canals are clear. Oropharynx with no redness, swelling, or masses, exudates, or evidence of obstruction, uvula midline. Mucous membranes moist. Neck: Trachea midline, no thyromegaly or masses palpated, and no cervical lymphadenopathy. Supple, full range of motion without nuchal rigidity, or vertebral point tenderness. No Meningismus. Chest/axilla: Normal chest wall appearance and motion. Nontender with no deformity. No lesions are appreciated. Cardiovascular: Regular rate and rhythm with a normal S1 and S2. No gallops, murmurs, or rubs. Normal PMI, no JVD. No pulse deficits. Abdomen/GI: Soft, non-tender, with normal bowel sounds. No distension or tympany. No guarding or rebound. No evidence of tenderness throughout. Back: No spinal tenderness. No costovertebral tenderness. Full range of motion. Skin: Warm, dry with normal turgor. Normal color with no rashes, no lesions, and no evidence of cellulitis. MS/ Extremity: Pulses equal, no cyanosis. Neurovascular intact. Full, normal range of motion. Neuro: Awake and alert, GCS 15, oriented to person, place, time, and situation. Cranial nerves II-XII grossly intact. Motor strength 5/5 in all extremities. Sensory grossly intact. Cerebellar exam normal. Normal gait. Psych: Awake, alert, with orientation to person, place and time. Behavior, mood, and affect are within normal limits. 20:00 Respiratory: the patient does not display signs of respiratory distress, Respirations: normal, Breath sounds: are clear throughout. Vital Signs: 19:35 BP 141 / 91; Pulse 84; Resp 18 S; Temp 99.7(O); Pulse Ox 98% on R/A; Weight 99.79 kg ca1 (R); Height 5 ft. 8 in. (172.72 cm) (R); Pain 0/10; 21:09 BP 147 / 91; Pulse 79; Resp 18; Pulse Ox 97% on R/A; jb4 21:45 BP 129 / 71; Pulse 89; Resp 17; Temp 97.1(TE); Pulse Ox 97% on R/A; jb4 22:19 BP 110 / 80 RA Supine; Pulse 85; Resp 19; Pulse Ox 94% on R/A; jb4 22:20 BP 123 / 91 RA Sitting; Pulse 80; Resp 22; Pulse Ox 95% on R/A; jb4 22:22 BP 116 / 75 RA Standing; Pulse 87; Resp 21; Pulse Ox 96% on R/A; jb4 19:35 Body Mass Index 33.45 (99.79 kg, 172.72 cm) ca1 MDM: 19:51 Patient medically screened. [facility] 20:05 Data reviewed: vital signs, nurses notes, lab test result(s), EKG, radiologic studies. 11/02:00 Order name: Basic Metabolic Panel 11/02: Order name: CBC with Diff 11/02: Order name: LFT's 11/02: Order name: Magnesium 11/02: Order name: NT PRO-BNP 11/02:00 Order name: PT-INR 11/02: Order name: Troponin (emerg Dept Use Only) 11/02: Order name: Urine Culture tia 04/10 20:00 Order name: Amylase, Serum [facility] 11/02 20:00 Order name: Blood Culture Adult (2) [facility] 11/02 20:00 Order name: Ckmb; Complete Time: 22:11 [facility] 11/02 20:00 Order name: CPK; Complete Time: 22:11 [facility] 11/02 20:00 Order name: Lactate; Complete Time: 21:39 [facility] 11/02 20:00 Order name: Lipase; Complete Time: 22:11 [facility] 11/02 20:00 Order name: Procalcitonin; Complete Time: 22:11 [facility] 11/02 20:00 Order name: Ptt, Activated; Complete Time: 21:39 [facility] 11/02 20:00 Order name: Urine Microscopic Only [facility] 11/02 20:00 Order name: Influenza Screen (a \T\ B); Complete Time: 21:39 [facility] 11/02 20:00 Order name: Strep; Complete Time: 21:39 [facility] 11/02 20:00 Order name: COVID-19 [facility] 11/02 20:01 Order name: Basic Metabolic Panel; Complete Time: 22:11 [facility] 11/02 20:01 Order name: CBC with Automated Diff; Complete Time: 21:02 [facility] 11/02 20:01 Order name: Liver (Hepatic) Function; Complete Time: 22:11 [facility] 11/02 20:01 Order name: Magnesium; Complete Time: 22:11 [facility] 11/02 20:01 Order name: NT PRO-BNP; Complete Time: 22:11 [facility] 11/02 20:01 Order name: Protime (+INR); Complete Time: 21:39 [facility] 11/02 20:01 Order name: Troponin (Emerg Dept Use Only); Complete Time: 22:11 [facility] 11/02 20:01 Order name: Urine Culture [facility] 11/02 20:00 Order name: XRAY Chest (1 view); Complete Time: 21:02 [facility] 11/02 20:00 Order name: EKG; Complete Time: 20:02 [facility] 11/02 20:00 Order name: Cardiac monitoring; Complete Time: 20:04 [facility] 11/02 20:00 Order name: EKG - Nurse/Tech; Complete Time: 21:53 [facility] 11/02 20:00 Order name: IV Saline Lock; Complete Time: 21:53 [facility] 11/02 20:00 Order name: Labs collected and sent; Complete Time: 21:53 [facility] 11/02 20:00 Order name: O2 Per Protocol; Complete Time: 20:03 [facility] 11/02 20:00 Order name: O2 Sat Monitoring; Complete Time: 20:03 [facility] 11/02 20:00 Order name: Accucheck; Complete Time: 21:53 [facility] 11/02 20:00 Order name: IV Saline Lock - Large Bore; Complete Time: 21:53 [facility] 11/02 20:00 Order name: Urine Dipstick-Ancillary (obtain specimen); Complete Time: 21:53 [facility] 11/02 20:01 Order name: Amylase Level; Complete Time: 22:11 [facility] 11/02 21:14 Order name: Throat Culture [facility] 11/02 21:59 Order name: Glucose, Ancillary Testing; Complete Time: 22:11 [facility] 11/02 22:04 Order name: Urine Dipstick--Ancillary (enter results) [facility] 11/02 22:11 Order name: Orthostatics; Complete Time: 22:34 [facility] Administered Medications: 20:30 Drug: Tylenol 1000 mg Route: PO; jb4 22:00 Follow up: Response: No adverse reaction; Temperature is decreased jb4 20:45 Drug: NS 0.9% (30 ml/kg) 30 ml/kg Route: IV; Rate: bolus; Site: left antecubital; 4 23:00 Follow up: Response: No adverse reaction; IV Status: IV fluids discontinued. PT jb4 partially D/C'ed own IV. Refused secondary IV to finish fluids.; IV Intake: 2300ml 20:45 Drug: Rocephin 1 grams Route: IV; Rate: per protocol; Site: left antecubital; jb4 20:47 Follow up: Response: No adverse reaction; IV Status: Completed infusion; IV Intake: 16hblq2 20:47 Drug: Zithromax 500 mg Route: IVPB; Infused Over: 1 hrs; Site: left antecubital; 4 21:47 Follow up: Response: No adverse reaction; IV Status: Completed infusion; IV Intake: jb4 250ml Disposition: 11/03/19 22:12 Discharged to Home. Impression: Fever, unspecified, Cough, Diarrhea, unspecified, Urinary tract infection, site not specified. - Condition is Stable. - Discharge Instructions: Food Choices to Help Relieve Diarrhea, Adult, Diarrhea, Adult, Dysuria, Fever, Adult, Diarrhea, Adult, [id number], Cough, Adult, Ytib-za-[id number], Cough, Adult. - Prescriptions for Bromfed DM 2- 30-10 mg/5 mL Oral syrup - take 10 milliliter by ORAL route every 6 hours; 150 milliliter. Zithromax 500 mg Oral Tablet - take 1 tablet by ORAL route once daily for 4 days; 4 tablet. Bactrim DS 800- 160 mg Oral Tablet - take 1 tablet by ORAL route every 12 hours for 5 days; 10 tablet. - Medication Reconciliation Form, Thank You Letter, Antibiotic Education, Prescription Opioid Use form. - Follow up: Private Physician; When: 2 - 3 days; Reason: Recheck today's complaints, Continuance of care, Re-evaluation by your physician. - Problem is new. - Symptoms have improved. Signatures: Dispatcher [employer] [facility] Ashok Jurado MD MD cha Bryson, James, RN RN jb4 Graciela Doty RN RN ca1 Corrections: (The following items were deleted from the chart) 22:29 22:16 Head Angio+CT.RAD.BRZ ordered. [facility] 23:02 22:12 11/03/2019 22:12 Discharged to Home. Impression: Fever, unspecified; Cough; jb4 Diarrhea, unspecified; Urinary tract infection, site not specified. Condition is Stable. Discharge Instructions: Food Choices to Help Relieve Diarrhea, Adult, Diarrhea, Adult, Fever, Adult, Diarrhea, Adult, Rklo-qr-[id number], Cough, Adult, Yqkj-gl-Pprt, Cough, Adult. Prescriptions for Bromfed DM 2-30-10 mg/5 mL Oral syrup - take 10 milliliter by ORAL route every 6 hours; 150 milliliter, Zithromax 500 mg Oral Tablet - take 1 tablet by ORAL route once daily for 4 days; 4 tablet. and Forms are Medication Reconciliation Form, Thank You Letter, Antibiotic Education, Prescription Opioid Use. Follow up: Private Physician; When: 2 - 3 days; Reason: Recheck today's complaints, Continuance of care, Re-evaluation by your physician. Problem is new. Symptoms have improved. tia
[2019-11-03 23:29] VITALS: TEMP 97.1
[2019-11-03 23:34] VITALS: BP 116/75; O2SAT 96
--- NOTE | 2019-11-04 07:59 | EKG ---
Test Date: 2019-11-03 Test Time: 21:42:37 Artistic Director: TORY MEASUREMENT RESULTS: Intervals: Rate: 87 [place]: 154 QRSD: 80 QT: 386 QTc: 464 Secor: P: 53 [place]: 154 QRS: 49 T: 46 INTERPRETIVE STATEMENTS: Normal sinus rhythm Normal ECG Compared to ECG 03/27/2019 18:17:59 T-wave abnormality no longer present Prolonged QT interval no longer present Electronically Signed On 11-04-19 07:58:28 CDT by Coy Alexander
== END 2019-11-03 23:02 | disposition home or self-care (01) ==
LOC: ER 19:23
DX: R05 Cough (principal); N39.0 Urinary tract infection, site not specified; R19.7 Diarrhea, unspecified; F31.9 Bipolar disorder, unspecified; E11.9 Type 2 diabetes mellitus without complications; Z88.1 Allergy status to other antibiotic agents; Z88.5 Allergy status to narcotic agent; Z03.818 Encounter for observation for suspected exposure to other biological agents ruled out
CPT/HCPCS: 96365; 93005; 87040 ×2; 87070; 87088; 85025; 87086; 80048; 36415; 82150; 83735; 82550; 85610; 82947; 80076; 87081; 83605; 85730; 84484; 82553; 83690; 84145; 83880; 87804 ×2; 71045; 96375; 99285; U0001; J0456; J0696; J7030 ×2; 81003; 81015

== ENCOUNTER 2019-12-09 07:57 | Emergency (ER) | payer OTHER ==
--- OUTSIDE RECORDS SUMMARY | 2019-12-09 07:59 | XMS REPORT ---
:1965 Author Organization [facility] t Address [address] [place] [address] Care Team Providers Name Role Phone DR LISA Attending Clinician Unavailable DR LISA Admitting Clinician Unavailable Payers Payer Name Policy Type Policy Number Effective Date Expiration Date S ource Problems This patient has no known problems. Allergies, Adverse Reactions, Alerts Allergy Allergy Status Severity Reaction(s) Onset Inactive Treating Comm ents Source Name Type Date Date Clinician cephalex DA Active [facility] in 04-24 [place] [facility]: [facility] Active [facility] acin 04-20 [place] 00:00: [facility] 00 [facility] Medications This patient has no known medications. Procedures This patient has no known procedures. Encounters Start End Encounter Admission Attending Care Care Encounter Source Date/Time Date/Time Type Type Clinicians Facility Department ID 2016-06-25 2016-06-25 Outpatient [facility] [id number] 04:40:00 07:45:00 [facility] Results Test Description Test Time Test Comments Results Result [facility] e Comments - XR KNEE 1 OR 2 V 2019-05-10 Patient Name: RT 18:12:00 CHEMO TONG Unit No: [id number] EXAMS: CPT CODE: [id number] XR KNEE 1 OR 2 V RT [id number] IMAGES PROVIDED: 2 FINDINGS: Postoperative changes from right total knee arthoplasty demonstrated without evidence of immediate complication. No acute fracture is visualized. IMPRESSION: Postoperative exam as above. at 181 Reported and signed by: Jay Valdivia M.D. CC: Geremias Messina MD Technologist: GABBY TARANGO (RT.R) Transcribed D/ (1811) [facility]vinSL[facility] NAME: CHEMO TONG [address] PHYS: Geremias Mittal MD : 1965 AGE: 53 SEX: F [place] [address] LOC: ROMI PHONE #: [phone] EXAM DATE: 05/09/2019 STATUS: [facility] FAX #: [phone] RAD #: D/C DT PAGE 1 Signed Report Patient Name: CHEMO TONG Unit No: [id number] EXAMS: CPT CODE: [id number] XR KNEE 1 OR 2 V RT [id number] <Continued> Orig Print D/T: S: 05/10/2019 (1814) [facility] NAME: CHEMO TONG [address] [facility] PHYS: Geremias Mittal MD : 1965 AGE: 53 SEX: F [place] [address] LOC: [facility] PHONE #: [phone] EXAM DATE: 05/09/2019 STATUS: [facility] FAX #: [phone] RAD #: D/C DT PAGE 2 Signed Report BASIC METABOLIC PANEL 2019-05-10 07:08:00 Test Item Value Reference Range Interpretation Comme nts SODIUM (test code = NA) 138 mmol/L 136-145 N POTASSIUM (test code = K) 5.4 mmol/L 3.5-5.1 H CHLORIDE (test code = CL) 102.0 mmol/L 98-107 N CARBON DIOXIDE (test code = 25.2 mmol/L 21-32 N CO2) GLUCOSE (test code = GLU) 151 mg/dL 70-110 H BLOOD UREA NITROGEN (test code 24 mg/dL 7-18 H = BUN) GLOMERULAR FILTRATION RATE 54.6 >60 U nit of measure: (test code = GFR) mL/min/1.7 3 [id number] Range:Healthy A dults >90 mL/min/1.73 m2 For Chronic Kidney Disease: Stage II Mi ld Decrease in GFR 60-9 0 Stage III Moderate Decrease in GFR 30-59 Stage IV Severe Decrease in GFR 15-29 Stage V Kidney Failure <15 CREATININE (test code = CREAT) 1.05 mg/dL 0.55-1.30 N CALCIUM (test code = CA) 8.8 mg/dL 8.2-10.1 N HGB [id number] 05:46:00 Test Item Value Reference Range Interpretation Comments HEMOGLOBIN (test code = HGB) 11.2 g/dL 12-16 L HEMATOCRIT (test code = HCT) 34.3 % 37-47 L COMPREHENSIVE METABOLIC [id number] 10:28:00 Test Item Value Reference Range Interpretation Comments SODIUM (test code = 142 mmol/L 134-144 NA) POTASSIUM (test code = 4.2 mmol/L 3.5-5.2 K) CHLORIDE (test code = 102 mmol/L 96-106 CL) CARBON DIOXIDE (test 22 mmol/L 20-29 Perform ed At: HD code = CO2) [facility] [id number] Harish Urbina MD Ph:[phone] GLUCOSE (test code = 109 mg/dL 65-99 H GLU) BLOOD UREA NITROGEN 14 mg/dL 6-24 (test code = BUN) GLOMERULAR FILTRATION >60 Unit o f measure: RATE (test code = GFR) mL/mi n/1.73 [id number] Range:Healthy A dults >90 mL/min/1.73 m2 For Chronic Kidney Disease: St age II Mild Dec rease in GFR 6 0-90 Stage III Moderate Decrea se in GFR 30-59 Stage IV Se mireya Decrease in GFR 15-29 Stage V Kidney Failur e <15 CREATININE (test code 0.8 mg/dL 0.57-1.00 = CREAT) TOTAL PROTEIN (test 6.8 g/dL 6.0-8.5 code = PROT) ALBUMIN (test code = 4.5 g/dL 3.5-5.5 ALB) GLOBULIN (test code = 2.3 g/dL 2.2-4.2 N GLOB) ALBUMIN/GLOBULIN RATIO 2.0 1.2-2.2 (test code = A/G) CALCIUM (test code = 9.4 mg/dL 8.7-10.2 CA) BILIRUBIN TOTAL (test < 0.2 mg/dL 0.0-1.2 code = BILT) SGOT/AST (test code = 29 IU/L 0-40 AST) SGPT/ALT (test code = 35.0 IU/L 0-32 H ALT) ALKALINE PHOSPHATASE 110 IU/L 39-117 TOTAL (test code = ALKP) GROSSLY LIPEMIC. SPECIMEN SENT TO [facility].COMPREHENSIVE METABOLIC PANEL 2019-04-21 10:28:00 Test Item Value Reference Range Interpretation Comments SODIUM (test code = 142 mmol/L 134-144 NA) POTASSIUM (test code = 4.2 mmol/L 3.5-5.2 K) CHLORIDE (test code = 102 mmol/L 96-106 CL) CARBON DIOXIDE (test 22 mmol/L 20-29 Perform ed At: HD code = CO2) [facility] [address] [id number] Harish Urbina MD Ph:[phone] GLUCOSE (test code = 109 mg/dL 65-99 H GLU) BLOOD UREA NITROGEN 14 mg/dL 6-24 (test code = BUN) GLOMERULAR FILTRATION 74.7 >60 Unit o f measure: RATE (test code = GFR) mL/mi n/1.73 [id number] Range:Healthy A dults >90 mL/min/1.73 m2 For Chronic Kidney Disease: St age II Mild Dec rease in GFR 6 0-90 Stage III Moderate Decrea se in GFR 30-59 Stage IV Se mireya Decrease in GFR 15-29 Stage V Kidney Failur e <15 CREATININE (test code 0.8 mg/dL 0.57-1.00 = CREAT) TOTAL PROTEIN (test 6.8 g/dL 6.0-8.5 code = PROT) ALBUMIN (test code = 4.5 g/dL 3.5-5.5 ALB) GLOBULIN (test code = 2.3 g/dL 2.2-4.2 N GLOB) ALBUMIN/GLOBULIN RATIO 2.0 1.2-2.2 (test code = A/G) CALCIUM (test code = 9.4 mg/dL 8.7-10.2 CA) BILIRUBIN TOTAL (test < 0.2 mg/dL 0.0-1.2 code = BILT) SGOT/AST (test code = 29 IU/L 0-40 AST) SGPT/ALT (test code = 35.0 IU/L 0-32 H ALT) ALKALINE PHOSPHATASE 110 IU/L 39-117 TOTAL (test code = ALKP) GROSSLY LIPEMIC. SPECIMEN SENT TO [facility].CBC W/AUTO [id number] 17:03:00 Test Item Value Reference Range Interpretation Comments WHITE BLOOD CELL (test code = WBC) 9.0 K/mm3 5.8-11.0 N RED BLOOD CELL (test code = RBC) 4.49 M/mm3 4.2-5.4 N HEMOGLOBIN (test code = HGB) 13.4 g/dL 12-16 N HEMATOCRIT (test code = HCT) 38.2 % 37-47 N MEAN CELL VOLUME (test code = MCV) 85 fL 80-98 N MEAN CELL HGB (test code = MCH) 29.8 pg 27-34 N MEAN CELL HGB CONCENTRATION (test 35.1 g/dL 30.8-34.1 H code = MCHC) RED CELL DISTRIBUTION WIDTH (test 13.2 % 11-16 N code = RDW) PLT (test code = PLT) 290 K/mm3 130-400 N MEAN PLATELET VOLUME (test code = 10.2 fL 8.9-12.1 N MPV) NEUTROPHIL % (test code = NT%) 43.5 % 45-70 L LYMPHOCYTE % (test code = LY%) 48.1 % 20-40 H MONOCYTE % (test code = MO%) 5.8 % 3-10 N EOSINOPHIL % (test code = EO%) 2.0 % 1-5 N BASOPHIL % (test code = BA%) 0.4 % 0.0-1.1 N NEUTROPHIL # (test code = NT#) 3.91 K/mm3 2.00-7.50 N LYMPHOCYTE # (test code = LY#) 4.33 K/mm3 1.50-4.00 H MONOCYTE # (test code = MO#) 0.52 K/mm3 0.2-0.8 N EOSINOPHIL # (test code = EO#) 0.18 K/mm3 0.04-0.4 N BASOPHIL # (test code = BA#) 0.04 K/mm3 0.02-0.10 N MANUAL DIFF REQUIRED (test code = NO MANUAL DIFF MDIFF) NUCLEATED RED BLOOD CELL (test 0 % 0-0 N code = NRBC)
[2019-12-09] MEDS ORDERED: KETOROLAC 30 MG/ML INJ ONE (08:20)
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
[2019-12-09 08:45] VITALS: O2SAT 99
[2019-12-09 08:46] VITALS: BP 147/95; TEMP 98
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
== END 2019-12-09 08:41 | disposition home or self-care (01) ==
LOC: ER 07:57
PROC: 2W3CX1Z Immobilization of Right Lower Arm using Splint (ICD-10-PCS; principal; 2019-12-09)
DX: S62.392A Other fracture of third metacarpal bone, right hand, initial encounter for closed fracture (principal); V18.4XXA Pedal cycle driver injured in noncollision transport accident in traffic accident, initial encounter; E11.9 Type 2 diabetes mellitus without complications; F31.9 Bipolar disorder, unspecified; Z88.1 Allergy status to other antibiotic agents
CPT/HCPCS: 96372; 99284

== ENCOUNTER 2020-01-22 07:12 | Day surgery (SDC) | payer OTHER ==
[2020-01-18 10:02] LABS: Absolute Lymphocytes (CBC) 4.4 K/uL (0.7-4.9); Hematocrit 41.7 % (36.0-45.0); Lymphocytes % 32.2 % (15.3-44.8); MPV 8.5 fL (7.6-11.3); RBC Red Blood Cell Count 4.81 M/uL (3.86-4.86)
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
--- OUTSIDE RECORDS SUMMARY | 2020-01-22 07:14 | XMS REPORT | Continuity of Care Document ---
:1965 Author Organization [facility] t Address [address] [place] [address] Care Team Providers Name Role Phone Ciara Price MD Attending Clinician DR LISA Attending Clinician Unavailable DR LISA Admitting Clinician Unavailable Payers Payer Name Policy Type Policy Number Effective Date Expiration Date S ource Problems This patient has no known problems. Allergies, Adverse Reactions, Alerts Allergy Allergy Status Severity Reaction(s) Onset Inactive Treating Comm ents Source Name Type Date Date Clinician cephalex DA Active [facility] in 04-24 [place] 00:00: Orthope 00 [facility] levoflox DA Active [facility] acin 04-20 [place] 00:00: Romero [address] [facility] Medications This patient has no known medications. Procedures This patient has no known procedures. Encounters Start End Encounter Admission Attending Care Care Encounter Source Date/Time Date/Time Type Type Clinicians Facility Department ID 2019-12-13 2019-12-13 Office DAYAN Price [id number] 14:57:52 15:41:44 Visit [facility] [id number] Surgical [id number] Specialti [id number] es [address] [place] 2016-06-25 2016-06-25 Outpatient C DENISE GONZALEZ [facility] [id number] [facility] Results Test Description Test Time Test Comments Results Result [facility] e Comments - XR KNEE 1 OR 2 V 2019-05-10 Patient Name: RT 18:12:00 CHEMO TONG Unit No: [id number] EXAMS: CPT CODE: [id number] XR KNEE 1 OR 2 [place] [id number] IMAGES PROVIDED: 2 FINDINGS: Postoperative changes from right total knee arthoplasty demonstrated without evidence of immediate complication. No acute fracture is visualized. IMPRESSION: Postoperative exam as above. at 181 Reported and signed by: Jay Valdivia M.D. CC: Geremias Messina MD Technologist: GABBY TARANGO (RT.R) Transcribed D/ (1811) [facility] NAME: CHEMO TONG [address] [facility] PHYS: Geremias Mittal MD : 1965 AGE: 53 SEX: F [place] [address] LOC: ROMI PHONE #: [phone] EXAM DATE: 05/09/2019 STATUS: [facility] FAX #: [phone] RAD #: D/C DT PAGE 1 Signed Report Patient Name: CHEMO TONG Unit No: [id number] EXAMS: CPT CODE: [id number] XR KNEE 1 OR 2 V RT [id number] <Continued> Orig Print D/T: S: 05/10/2019 (1814) [facility] NAME: CHEMO TONG [address] [facility] PHYS: Geremias Mittal MD : 1965 AGE: 53 SEX: F [place] [address] LOC: ChrisDSU PHONE #: [phone] EXAM DATE: 05/09/2019 STATUS: [facility] FAX #: [phone] RAD #: D/C DT PAGE 2 Signed [...] measure: (test code = GFR) mL/min/1.7 3 [id number] Range:Healthy A dults >90 mL/min/1.73 m2 For Chronic Kidney Disease: Stage II Mi ld Decrease in GFR 60-9 0 Stage III Moderate Decrease in GFR 30-59 Stage IV Severe Decrease in GFR 15-29 Stage V Kidney Failure <15 CREATININE (test code = CREAT) 1.05 mg/dL 0.55-1.30 N CALCIUM (test code = CA) 8.8 mg/dL 8.2-10.1 N HGB [id number] 05:46:00 Test Item Value Reference Range Interpretation Comments HEMOGLOBIN (test code = HGB) 11.2 g/dL 12-16 L HEMATOCRIT (test code = HCT) 34.3 % 37-47 L COMPREHENSIVE METABOLIC [id number] 10:28:00 Test Item Value Reference Range Interpretation Comments SODIUM (test code = 142 mmol/L 134-144 NA) POTASSIUM (test code = 4.2 mmol/L 3.5-5.2 K) CHLORIDE (test code = 102 mmol/L 96-106 CL) CARBON DIOXIDE (test 22 mmol/L 20-29 Perform ed At: HD code = CO2) [facility] [id number] Harish Urbina MD Ph:[phone] GLUCOSE (test code = 109 mg/dL 65-99 H GLU) BLOOD UREA NITROGEN 14 mg/dL 6-24 (test code = BUN) GLOMERULAR FILTRATION >60 Unit o f measure: RATE (test code = GFR) mL/mi n/1.73 [id number] Range:Healthy A dults >90 mL/min/1.73 m2 For [...] ed At: HD code = CO2) [facility] [address] [id number] Harish Urbina MD Ph:[phone] GLUCOSE (test code = 109 mg/dL 65-99 H GLU) BLOOD UREA NITROGEN 14 mg/dL 6-24 (test code = BUN) GLOMERULAR FILTRATION 74.7 >60 Unit o f measure: RATE (test code = GFR) mL/mi n/1.73 [id number] Range:Healthy A dults >90 mL/min/1.73 m2 For [...] GROSSLY LIPEMIC. SPECIMEN SENT TO [facility].CBC W/AUTO [id number] 17:03:00 Test Item Value Reference Range Interpretation [...]
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
[2020-01-22] MEDS ORDERED: Ringers Lactate 1,000 ML IV ONE (07:47)
[2020-01-22] MEDS: CEFAZOLIN/SWI 1gm 1 GM/10 ML SYR ONE ×2 (09:05→10:20)
[2020-01-22] MEDS ORDERED: propofoL 200 MG/20 ML VIAL IV ONE (10:10)
[2020-01-22] MEDS ORDERED: MIDAZOLAM HCL 2 MG/2 ML INJ ONE (10:12)
[2020-01-22] MEDS ORDERED: FENTANYL CITR 100 MCG/2 ML ONE (10:12)
[2020-01-22] MEDS ORDERED: LIDOCAINE 1% MPF 5 ML VIAL ONE (10:13)
--- NOTE | 2020-01-22 10:22 | RAD REPORT ---
EXAM DESCRIPTION: US - Brst,Preop NL Wire Init w/Guid - 01/22/2020 8:49 am CLINICAL HISTORY: NDL LOC Right breast mass, 6 o'clock position. COMPARISON: Follow Up Breast Axilla Comp dated 12/27/2019 FINDINGS: Preoperative diagnosis: Right breast mass.. Post operative diagnosis: Same. Conscious Sedation: None Fluoroscopy time: None Contrast used: None Estimated blood loss: Minimal The right breast was prepped and draped in the usual sterile fashion. 1% lidocaine was infiltrated in to the subcutaneous tissues for local anesthesia. Real time ultrasound scanning of the right breast d emonstrated hypoechoic 1 centimeter mass 6 o'clock position.. Under ultrasound guidance, using a Kopa n's hookwire, a preoperative wire was placed through the mass. There were no complications. IMPRESSION: Successful ultrasound-guided preoperative wire localization of right breast mass.
[2020-01-22] MEDS ORDERED: dexAMETHasone 10 MG/ML VIAL ONE (10:47)
[2020-01-22] MEDS ORDERED: KETOROLAC 30 MG/ML INJ ONE (10:47)
--- NOTE | 2020-01-22 10:58 | RAD REPORT ---
EXAM DESCRIPTION: US - Surgical Specimen - 01/22/2020 10:49 am CLINICAL HISTORY: SPEC Postsurgical specimen. COMPARISON: Brst,Preop NL Wire Init w/Guid dated 01/22/2020 FINDINGS: Sonography of the post surgical right breast specimen was performed. The lesion of interes t as well as the wire is seen within the specimen. This was discussed with Dr. Auguste.
[2020-01-22] MEDS ORDERED: ONDANSETRON 4 MG/2 ML VIAL ONE (11:05)
[2020-01-22 11:35] VITALS: TEMP 97.6
[2020-01-22] MEDS ORDERED: MEPERIDINE HCL 25 MG/ML SYR ONE (11:40)
[2020-01-22] MEDS ORDERED: HYDROCODONE/APAP 7.5/325 MG TAB ONE (12:05)
[2020-01-22 13:51] VITALS: BP 125/72; O2SAT 94
--- NOTE | 2020-01-22 22:22 | OP ---
Date of Procedure: 01/22/2020 Surgeon: Myke Auguste MD Media Theorist And Author Of: PATTY Monroe Preoperative Diagnosis: Symptomatic right breast mass. Postoperative Diagnosis: Symptomatic right breast mass. Procedure: Needle localization and excision of right breast mass. Estimated Blood Loss: Minimal. Specimen: Right breast mass finding as above. Anesthesia: General. Complications: None. Disposition: Patient tolerated the procedure in stable condition, taken to Recovery in good general condition. Procedure In Detail: The patient was brought to the OR and placed in supine position. General anest hesia was begun. Patient was prepped and draped in usual sterile fashion. Then, a 4 cm incision in the inferior aspect of the breast was made. Subcutaneous tissues were divided. Tract of the needle was identified and the tip of the needle identified and then core tissue around the tip of the needle excised and sent to Radiology. Confirmation obtained. Wound irrigated. Bleeding controlled with c autery. 3-0 chromic used to approximate the subcutaneous tissue and closed the skin. Sterile dressi ng was applied. Patient was awakened and taken to Recovery in good general condition. Discharge Note: The patient will go to day surgery and home when stable. Disposition: Home. Condition: Stable. Discharge Instructions: Resume home medications and diet. Activity as tolerated. No heavy lifting. Sponge bath only and do not remove dressing until patient comes to the office. Keep wound clean an d dry. Follow up in my office in 1 week. Call for appointment. Tylenol No. 3 one tablet p.o. q.4 p .r.n. pain. /MODL Voice ID: [id number] Report ID: [id number]
== END 2020-01-22 12:40 | disposition home or self-care (01) ==
LOC: RAD 07:12
PROVIDERS: ATTEND Surgery
PROC: 0HBT0ZX Excision of Right Breast, Open Approach, Diagnostic (ICD-10-PCS; principal; 2020-01-22 09:45)
DX: D24.1 Benign neoplasm of right breast (principal); N63.10 Unspecified lump in the right breast, unspecified quadrant; Z11.59 Encounter for screening for other viral diseases
CPT/HCPCS: 19125; 85025; 80048; 36415; 88307; 76098; 19285; U0002; J2704; J2250; J3010; J1100; J2175; J0690; J7120; J2405; 88305

== ENCOUNTER 2021-03-05 09:52 | Inpatient (IN) | payer OTHER ==
--- OUTSIDE RECORDS SUMMARY | 2021-03-05 09:55 | XMS REPORT | Continuity of Care Document ---
:1965 Author Organization [facility] t Address [address] [place] [address] Care Team Providers Name Role Phone Jarrell Mosley DO Attending Clinician Dee THURSTON L Attending Clinician DR LISA Attending Clinician Unavailable DR LISA Admitting Clinician Unavailable Payers Payer Name Policy Type Policy Number Effective Date Expiration Date S ource Problems This patient has no known problems. Allergies, Adverse Reactions, Alerts Allergy Allergy Status Severity Reaction(s) Onset Inactive Treating Comm ents Source Name Type Date Date Clinician levoflox DA Active [place] 2019-0 [facility] ac[facility] 02-07 [place] 00:00: Romero 00 [facility] cephalex DA Active [place] 2018-0 [facility] in 04-24 [place] 00:00: Romero 00 [facility] levoflox DA Active [place] 2018-0 [facility] acin 04-20 [place] 00:00: Romero 00 [facility] Medications This patient has no known medications. Procedures This patient has no known procedures. Encounters Start End Encounter Admission Attending Care Care Encounter Source Date/Time Date/Time Type Type Clinicians Facility Department ID 2020-10-05 2020-10-05 Patient Dimitri [facility] [id number] 00:00:00 00:00:00 Outreach Torey [facility] [id number] [facility] [id number] [facility] [id number] 2019-12-13 2019-12-13 Office DAYAN Price [id number] 14:57:52 15:41:44 Visit Tre Urbina [facility] [id number] Surgical [id number] Specialti [id number] 198 [place] 2016-06-25 2016-06-25 Outpatient Sintia GONZALEZ [facility] [id number] [place] 04:40:00 07:45:00 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 at 1022 Reported and signed by: Isauro Gonzalez MD CC: Geremias Messina MD; Neno Castorena MD Technologist: ZOHRA HIGH. RT(R) Transcribed D/ (4683) [facility] NAME: CHEMO TONG [address] [facility] PHYS: Geremias Mittal MD : 1965 AGE: 55 SEX: F [place] [address] LOC: Y.998 1 PHONE #: [phone] EXAM DATE: 08/20/2020 STATUS: ADM IN FAX #: [phone] RAD #: D/C DT PAGE 1 Signed Report Patient Name: CHEMO TONG Unit No: [id number] EXAMS: CPT CODE: [id number] XR KNEE 1 OR 2 [place] [id number] <Continued> Orig Print D/T: S: 08/20/2020 (2504) [facility] NAME:CHEMO TONG [address] [facility] PHYS: Geremias Mittal MD : 1965 AGE: 55 SEX: F [place] [address] LOC: Y.998 1 PHONE #: [phone] EXAM DATE: 08/20/2020 STATUS: ADM IN FAX #: [phone] RAD #: D/C DT PAGE 2 Signed ReportNovel Coronavirus 2019 [id number] 09:23:00 Test Item Value Reference Range Interpretation Comments Novel Coronavirus Negative Negative Positive r esults are 2019 Inhouse (test indicativ e of the presence code = COVNONPUI) ofSARS-CoV -2 RNA, clinical correlation wit h patient historyand othe r diagnostic info rmation is necessary to determinepatien t infection status. Positiv e results do not rule out bacterial infection or co -infection with other viru ses. Negative result s do not preclude SARS-C oV-2 infection andsh ould not be used as the silvia e basis for patient managementdecis ions. Negative result s must be combined with otherclinical observations, p atient history, and epidemiological information . Detection of SARS-CoV-2 RNA may be affe cted bysample collec tion methods, storag e conditions, and /or stageof infection. Martha l RNA mutations, vacc inations, antiviraltherap eutics, antibiotics, chemotherapeuti c orimmunosuppres see drugs have not been e valuated for effectson d etection. Results are for the identification of SARS-CoV-2 RNA usingthe Spears M2000 Sy stem under the [facility] Emergen cy UseAuthorizatio n. The testing is perf ormed by personneltraine d in the procedures for the Spears M2000 molecular diagnostic SARS-CoV-2 assa y in vitro. Novel Coronavirus 2018 [id number] 09:22:00 Test Item Value Reference Range Interpretation Comments Novel Coronavirus Negative Negative Positive r esults are 2019 Inhouse (test indicativ e of the presence code = COVNONPUI) ofSARS-CoV -2 RNA, clinical correlation wit h patient historyand othe r diagnostic info rmation is necessary to determinepatien t infection status. Positiv e results do not rule out bacterial infection or co -infection with other viru ses. Negative result s do not preclude SARS-C oV-2 infection andsh ould not be used as the silvia e basis for patient managementdecis ions. Negative result s must be combined with otherclinical observations, p atient history, and epidemiological information . Detection of SARS-CoV-2 RNA may be affe cted bysample collec tion methods, storag e conditions, and /or stageof infection. Martha l RNA mutations, vacc inations, antiviraltherap eutics, antibiotics, chemotherapeuti c orimmunosuppres see drugs have not been e valuated for effectson d etection. Results are for the identification of SARS-CoV-2 RNA usingthe Spears M2000 Sy stem under the FDA Emergen cy UseAuthorizatio n. The testing is perf ormed by personneltraine d in the procedures for the Spears M2000 molecular diagnostic SARS-CoV-2 assa y in vitro. COMPREHENSIVE METABOLIC [id number] 14:55:00 Test Item Value Reference Range Interpretation Comments SODIUM (test code = 146 mmol/L 136-145 H NA) POTASSIUM (test code = 4.2 mmol/L 3.5-5.1 N K) CHLORIDE (test code = 107.0 mmol/L 98-107 N CL) CARBON DIOXIDE (test 29.7 mmol/L 21-32 N code = CO2) GLUCOSE (test code = 109 mg/dL 70-110 N GLU) BLOOD UREA NITROGEN 13 mg/dL 7-18 N (test code = BUN) GLOMERULAR FILTRATION 46.0 >60 Unit o f measure: RATE (test code = GFR) mL/mi n/1.73 f9Ijgyqelur Range:Healthy Adults >90 mL/min/1.73 m2 For Chronic Kidney Disease: St age II Mild Decrease in GFR 60-90 St age III Moderate Decrease in GFR 30-59 Stage IV Severe Decre ase in GFR 15- 29 Stage V Kidney Failure <15 CREATININE (test code 1.21 mg/dL 0.55-1.30 N = CREAT) TOTAL PROTEIN (test 6.9 g/dL 6.4-8.2 N code = PROT) ALBUMIN (test code = 3.8 g/dL 3.4-5.0 N ALB) GLOBULIN (test code = 3.1 g/dL 2.2-4.2 N GLOB) ALBUMIN/GLOBULIN RATIO 1.2 0.7-2.0 N (test code = A/G) CALCIUM (test code = 9.3 mg/dL 8.2-10.1 N CA) BILIRUBIN TOTAL (test 0.40 mg/dL 0.2-1.00 N code = BILT) SGOT/AST (test code = 22.0 U/L 15-37 N AST) SGPT/ALT (test code = 38.0 U/L 12-78 N Please note new ALT) normal range. ALKALINE PHOSPHATASE 126 U/L 46-116 H TOTAL (test code = ALKP) CBC W/AUTO [id number] 14:19:00 Test Item Value Reference Range Interpretation Comments WHITE BLOOD CELL (test code = WBC) 9.9 K/mm3 5.8-11.0 N RED BLOOD CELL (test code = RBC) 4.66 M/mm3 4.2-5.4 N HEMOGLOBIN (test code = HGB) 13.5 g/dL 12-16 N HEMATOCRIT (test code = HCT) 40.4 % 37-47 N MEAN CELL VOLUME (test code = MCV) 87 fL 80-98 N MEAN CELL HGB (test code = MCH) 29.0 pg 27-34 N MEAN CELL HGB CONCENTRATION (test 33.4 g/dL 30.8-34.1 N code = MCHC) RED CELL DISTRIBUTION WIDTH (test 12.7 % 11-16 N code = RDW) PLT (test code = PLT) 287 K/mm3 130-400 N MEAN PLATELET VOLUME (test code = 10.4 fL 8.9-12.1 N MPV) NEUTROPHIL % (test code = NT%) 56.1 % 45-70 N LYMPHOCYTE % (test code = LY%) 34.7 % 20-40 N MONOCYTE % (test code = MO%) 5.7 % 3-10 N EOSINOPHIL % (test code = EO%) 2.7 % 1-5 N BASOPHIL % (test code = BA%) 0.5 % 0.0-1.1 N NEUTROPHIL # (test code = NT#) 5.56 K/mm3 2.00-7.50 N LYMPHOCYTE # (test code = LY#) 3.44 K/mm3 1.50-4.00 N MONOCYTE # (test code = MO#) 0.57 K/mm3 0.2-0.8 N EOSINOPHIL # (test code = EO#) 0.27 K/mm3 0.04-0.4 N BASOPHIL # (test code = BA#) 0.05 K/mm3 0.02-0.10 N MANUAL DIFF REQUIRED (test code = NO MANUAL DIFF MDIFF) NUCLEATED RED BLOOD CELL (test 0 % 0-0 N code = NRBC) Novel Coronavirus 2019 [id number] 23:51:00 Test Item Value Reference Range Interpretation Comments Novel Coronavirus 2019 Inhouse (test Negative Negative code = COVNONPUI) Novel Coronavirus 2019 [id number] 23:51:00 Test Item Value Reference Range Interpretation Comments Novel Coronavirus 2018 Inhouse (test Negative Negative code = COVNONPUI) - XR KNEE 1 OR 2 V [id number] 18:12:00 Patient Name: CHEMO TONG Unit No: [id number] EXAMS: CPT CODE: [id number] XR KNEE 1 OR 2 [place] [id number] IMAGES PROVIDED: 2 FINDINGS: Postoperative changes from righttotal knee arthoplasty demonstrated without evidence of immediate complication. No acute fracture is visualized. IMPRESSION: Postoperative exam as above. at 1812 Reported and signed by: Jay Valdivia M.D. CC: Geremias Messina MD Technologist: GABBY TARANGO (RT.R) Transcribed D/ (1811) [facility] NAME: CHEMO TONG [address] [facility] PHYS: Germeias Mittal MD : 1965 AGE: 53 SEX: F [place] [address] LOC: ChrisDSU PHONE #: [phone] EXAM DATE: 05/09/2019 STATUS: [facility] FAX #: [phone] RAD #: D/C DT PAGE 1 Signed Report Patient Name: CHEMO TONG Unit No: [id number] EXAMS: CPT CODE: [id number] XR KNEE 1 OR 2 V RT [id number] <Continued> Orig Print D/T: S: 05/10/2019 (1814) [facility] NAME: CHEMO TONG [address] [facility] PHYS: Geremias Mittal MD : 1965 AGE: 53 SEX: F [place] [address] LOC: ChrisDSU PHONE #: [phone] EXAM DATE: 05/09/2019 STATUS: [facility] FAX #: [phone] RAD #: D/C DT PAGE 2 Signed ReportBASIC METABOLIC PANEL 2019-05-10 07:08:00 Test Item Value Reference Range Interpretation Comments SODIUM (test code = 138 mmol/L 136-145 N NA) POTASSIUM (test code = 5.4 mmol/L 3.5-5.1 H K) CHLORIDE (test code = 102.0 mmol/L 98-107 N CL) CARBON DIOXIDE (test 25.2 mmol/L 21-32 N code = CO2) GLUCOSE (test code = 151 mg/dL 70-110 H GLU) BLOOD UREA NITROGEN 24 mg/dL 7-18 H (test code = BUN) GLOMERULAR FILTRATION 54.6 >60 Unit o f measure: RATE (test code = GFR) mL/mi n/1.73 m6Wrkcfdkib Range:Healthy Adults >90 mL/min/1.73 m2 For Chronic Kidney Disease: St age II Mild Decrease in GFR 60-90 St age III Moderate Decrease in GFR 30-59 Stage IV Severe Decre ase in GFR 15- 29 Stage V Kidney Failure <15 CREATININE (test code 1.05 mg/dL 0.55-1.30 N = CREAT) CALCIUM (test code = 8.8 mg/dL 8.2-10.1 N CA) HGB [id number] 05:46:00 Test Item Value Reference Range Interpretation Comments HEMOGLOBIN (test code = HGB) 11.2 g/dL 12-16 L HEMATOCRIT (test code = HCT) 34.3 % 37-47 L COMPREHENSIVE METABOLIC [id number] 10:28:00 Test Item Value Reference Range Interpretation Comments SODIUM (test code = 142 mmol/L 134-144 NA) POTASSIUM (test code = 4.2 mmol/L 3.5-5.2 K) CHLORIDE (test code = 102 mmol/L 96-106 CL) CARBON DIOXIDE (test 22 mmol/L 20-29 Perform ed At: HD code = CO2) [facility] [address] [id number] Harish Urbina MD Ph:[phone] GLUCOSE (test code = 109 mg/dL 65-99 H GLU) BLOOD UREA NITROGEN 14 mg/dL 6-24 (test code = BUN) GLOMERULAR FILTRATION >60 Unit o f measure: RATE (test code = GFR) mL/mi n/1.73 u6Sseagbdwf Range:Healthy A dults >90 mL/min/1.73 m2 For [...] ed At: HD code = CO2) [facility] [address] [id number] Harish Urbina MD Ph:[phone] GLUCOSE (test code = 109 mg/dL 65-99 H GLU) BLOOD UREA NITROGEN 14 mg/dL 6-24 (test code = BUN) GLOMERULAR FILTRATION 74.7 >60 Unit o f measure: RATE (test code = GFR) mL/mi n/1.73 y6Xuhpdtqdf Range:Healthy A dults >90 mL/min/1.73 m2 For [...] GROSSLY LIPEMIC. SPECIMEN SENT TO [facility].CBC W/AUTO [id number] 17:03:00 Test Item Value Reference Range Interpretation [...]
[2021-03-05 11:17] LABS: Urine Blood Trace-lysed (Negative); Urine Glucose Trace (Negative); Urine Protein 2+ (Negative); Urine pH 6.5 (5.0-7.0)
--- NOTE | 2021-03-05 11:47 | RAD REPORT ---
EXAM DESCRIPTION: CT - Ct Stroke Brain Wo Cont - 03/05/2021 11:40 am CLINICAL HISTORY: DIZZINESS COMPARISON: Head Brain Wo Cont dated 06/01/2018 TECHNIQUE: All CT scans are performed using dose optimization technique as appropriate and may inclu de automated exposure control or mA/KV adjustment according to patient size. FINDINGS: No intracranial hemorrhage, hydrocephalus or extra-axial fluid collection.No areas of brai n edema or evidence of midline shift. The paranasal sinuses and mastoids are clear. The calvarium is intact. IMPRESSION: No acute intracranial abnormality.
--- NOTE | 2021-03-05 11:59 | RAD REPORT ---
EXAM DESCRIPTION: RAD - Chest Single View - 03/05/2021 11:54 am CLINICAL HISTORY: dizzy COMPARISON: Chest Single View dated 11/03/2019; Chest Pa And Lat (2 Views) dated 10/06/2019; Chest Pa And Lat (2 Views) dated 07/25/2017; Chest Pa And Lat (2 Views) dated 01/29/2016 FINDINGS: Interval development of moderate to severe widespread bilateral airspace disease. The hear t size is within normal limits.No acute osseous abnormality. No significant pleural effusions or pneu mothorax. IMPRESSION: Moderate to severe bilateral airspace disease concerning for multifocal pneumonia, inclu ding Covid-19.
[2021-03-05] MEDS ORDERED: NA CHLORIDE 0.9% 1,000 ML ONE ×2 (12:36→18:47)
[2021-03-05 12:43] LABS: Protime INR 1.61
[2021-03-05 12:51] LABS: Potassium 3.2 mmol/L (3.5-5.1)
[2021-03-05 13:00] LABS: Albumin 2.5 g/dL (3.4-5.0); Bilirubin Direct 0.2 mg/dL (0-0.2); Bilirubin Total 0.9 mg/dL (0.2-1.0); Ferritin 1060.5 ng/mL (8-388); Protein, Total 7.6 g/dL (6.4-8.2); Troponin (Emerg Dept Use Only) 0.21 ng/mL (0.0-0.045)
[2021-03-05 13:07] LABS: Absolute Lymphocytes (CBC) 1.7 K/uL (0.7-4.9); Basophils % 0.2 % (0-1.3); Hematocrit 42.1 % (36.0-45.0); Lymphocytes % 9.5 % (15.3-44.8); MPV 8.7 fL (7.6-11.3); RBC Red Blood Cell Count 4.89 M/uL (3.86-4.86)
[2021-03-05 13:30] LABS: Urine Blood 1+ (Negative); Urine Glucose Negative (Negative); Urine Protein 1+ (Negative)
[2021-03-05 14:08] LABS: Urine Bacteria <20 /HPF (<20); Urine RBC <5 /HPF (NONE SEEN)
--- NOTE | 2021-03-05 15:20 | RAD REPORT ---
EXAM DESCRIPTION: CT - Chest For Pe Angio - 03/05/2021 3:00 pm CLINICAL HISTORY: cough COMPARISON: March 05, 2021 chest x-ray TECHNIQUE: Dynamically enhanced axial 3 mm thick images of the chest were obtained during administra tion of <100> mL Isovue 370 IV contrast. Coronal and oblique reconstruction images were generated and reviewed. Exam utilizes a protocol for optimal evaluation of pulmonary arterial tree. Maximum intensity projections 3D imaging was utilized All CT scans are performed using dose optimization technique as appropriate and may include automated exposure control or mA/KV adjustment according to patient size. FINDINGS: Left lower lobe pulmonary emboli. Main pulmonary and right pulmonary arteries are patent. A thoracic aortic aneurysm is not noted. A pleural effusion is not seen. A pericardial effusion is not seen. Moderate to marked bilateral ground-glass opacities within the lungs IMPRESSION: Left lower lobe pulmonary emboli Mild to moderate bilateral ground-glass opacities within the lungs can be seen with Covid pneumonia
[2021-03-05] MEDS ORDERED: CEFEPIME/SWI 1gm 10 ML ONE (15:24)
[2021-03-05] MEDS ORDERED: VANCOMYCIN/NS 1 gm 1 GM/250 ML BAG IVPB ONE (16:00)
--- NOTE | 2021-03-05 16:16 | ER ---
Nurse's Notes [facility] Name: Víctor Alexis Age: 55 yrs Sex: Female : 1965 Arrival Date: 03/05/2021 Time: 09:56 Bed 14 Private MD: Neno Castorena Diagnosis: SARS-associated coronavirus as the cause of diseases classified elsewhere;Acute left base pulmonary embolism;Viral pneumonia, unspecified Presentation: 03/05 11:05 Chief complaint: Spouse and/or significant other states: She's been SOB, weak, with a jl7 cough and nausea x 1 week, 76% on RA in triage. Coronavirus screen: Client denies travel out of the [place] in the last 14 days. cough unrelated to allergies, shortness of breath, Client presents with at least one sign or symptom that may indicate coronavirus-19. Standard/surgical mask placed on the client. Provider contacted for isolation considerations. Ebola Screen: No symptoms or risks identified at this time. Initial Sepsis Screen: Does the patient meet any 2 criteria? RR > 20 per min. HR > 90 bpm. Yes Does the patient have a suspected source of infection? No. Patient's initial sepsis screen is negative. Risk Assessment: Do you want to hurt yourself or someone else? Patient reports no desire to harm self or others. Onset of symptoms is unknown. Care prior to arrival: None. 11:05 Method Of Arrival: Wheelchair jl7 11:05 Acuity: BOWEN 2 jl7 Historical: - Allergies: 11:07 Levaquin; jl7 - PMHx: 11:07 ADD/ADHD; Anxiety; Bipolar disorder; Diabetes - NIDDM; jl7 - Immunization history:: Adult Immunizations unknown, Client reports having NOT received the Covid vaccine. - Social history:: Smoking status: Patient denies any tobacco usage or history of. Screenin:19 Abuse screen: Denies threats or abuse. Nutritional screening: No deficits noted. ll1 Tuberculosis screening: No symptoms or risk factors identified. Fall Risk IV access (20 points). Ambulatory Aid- Crutches/Cane/Walker (15 pts). Gait- Weak (10 pts.). Total Castaneda Fall Scale indicates High Risk Score (45 or more points). Fall prevention measures have been instituted. Side Rails Up X 2 Placed Close to Nursing Station Frequent Obs/Assessments Occuring Family Present and informed to notify staff if the need to leave the bedside As available patient and family educated on Fall Prevention Program and Strategies. Assessment: 12:00 General: Appears distressed, uncomfortable, Behavior is cooperative, appropriate for ll1 age, restless. Pain: Complains of pain in all over Quality of pain is described as aching, Aggravated by increased activity. Neuro: Level of Consciousness is awake, alert, obeys commands, Oriented to person, place, time, situation, Appropriate for age Vault Person are equal bilaterally Moves all extremities. Full function Gait is steady, Speech is normal, Facial symmetry appears normal, Reports dizziness, weakness. Cardiovascular: No deficits noted. Respiratory: Reports shortness of breath cough that is Breath sounds are clear bilaterally. Onset: The symptoms/episode began/occurred 3 days, the patient has moderate shortness of breath. GI: Abdomen is flat, Bowel sounds present X 4 quads. Reports nausea, vomiting. : No deficits noted. 13:00 Reassessment: Patient and/or family updated on plan of care and expected duration. Pain ll1 level reassessed. Patient is alert, oriented x 3, equal unlabored respirations, skin warm/dry/pink. Patient states feeling better. 14:00 Reassessment: Patient and/or family updated on plan of care and expected duration. Pain ll1 level reassessed. Patient is alert, oriented x 3, equal unlabored respirations, skin warm/dry/pink. Patient states feeling better. Patient states symptoms have improved. 15:00 Reassessment: Patient and/or family updated on plan of care and expected duration. Pain ll1 level reassessed. Patient is alert, oriented x 3, equal unlabored respirations, skin warm/dry/pink. Patient states feeling better. 16:00 Reassessment: Patient and/or family updated on plan of care and expected duration. Pain ll1 level reassessed. Patient is alert, oriented x 3, equal unlabored respirations, skin warm/dry/pink. 17:00 Reassessment: Patient and/or family updated on plan of care and expected duration. Pain ll1 level reassessed. Patient is alert, oriented x 3, equal unlabored respirations, skin warm/dry/pink. eating a snack.. 18:00 Reassessment: Patient and/or family updated on plan of care and expected duration. Pain ll1 level reassessed. Patient is alert, oriented x 3, equal unlabored respirations, skin warm/dry/pink. 19:30 Neuro: Level of Consciousness is awake, alert, obeys commands. Cardiovascular: lp1 Patient's skin is warm and dry. Respiratory: Airway is patent Trachea midline Respiratory effort is even, shallow, Respiratory pattern is tachypnea Breath sounds are diminished bilaterally. : Carney in place to gravity drainage. Derm: Skin is intact, Skin is dry, Skin is normal. Musculoskeletal: No deficits noted. Vital Signs: 11:05 BP 131 / 79; Pulse 124; Resp 32; Temp 98.2; Pulse Ox 76% on R/A; Weight 102.06 kg; jl7 Height 5 ft. 7 in. (170.18 cm); 12:17 BP 116 / 93; Pulse 107; Resp 20; Pulse Ox 95% on Non-rebreather mask; ll1 13:25 BP 112 / 68; Pulse 83; Resp 19; Pulse Ox 98% on Non-rebreather mask; ll1 15:56 BP 101 / 64; Pulse 103; Resp 19; Pulse Ox 94% on Non-rebreather mask; ll1 19:30 BP 113 / 80; Pulse 103; Resp 22; Pulse Ox 94% on 50% Venturi mask; lp1 11:05 Body Mass Index 35.24 (102.06 kg, 170.18 cm) jl7 ED Course: 09:56 Patient arrived in ED. as 09:56 Neno Castorena MD is Private Physician. as 09:57 Francisco Veras MD is Attending Physician. kdr 11:07 Triage completed. jl7 11:07 Arm band placed on right wrist. Patient placed in an exam room, on a stretcher, on jl7 oxygen. 11:13 Ruth Menezes, ROMELIA is Primary Nurse. ll1 11:37 Radiology exam delayed due to pt was taken to ct at 11:37. ml 11:40 CT Stroke Brain w/o Contrast In Process Unspecified. EDMS 11:50 Missed attempt(s): 22 gauge in right forearm. Bleeding controlled, band aid applied, ll1 catheter tip intact. 11:53 Stroke CXR 1 View In Process Unspecified. EDMS 11:55 Inserted saline lock: 22 gauge in right hand, using aseptic technique. Blood collected. ll1 12:19 Inserted saline lock: 20 gauge in left antecubital area, using aseptic technique. Blood ll1 collected. Oxygen administration via non-rebreather mask. 13:15 EKG done, by ED staff, reviewed by Francisco Veras MD. em1 13:26 Patient has correct armband on for positive identification. Bed in low position. Call ll1 light in reach. Side rails up X2. hall monitor on. Pulse ox on. NIBP on. 13:26 Carney cath inserted, using sterile technique, 16 Fr., by ne, balloon inflated. ll1 14:29 Notified ED physician of a critical lab result(s). D dimer 93,649. ll1 15:00 CT Chest For PE Angio In Process Unspecified. EDMS 16:14 Cruz Chan MD is Hospitalizing Provider. kdr 18:14 Notified ED physician of a critical lab result(s). 2.1 Lactate and positive covid-19 aa5 result. 19:50 No provider procedures requiring assistance completed. Patient admitted, IV remains in lp1 place. Administered Medications: 12:17 Drug: NS 0.9% 1000 ml Route: IV; Rate: 1 bolus; Site: left antecubital; ll1 13:15 Follow up: Response: No adverse reaction; IV Status: Completed infusion; IV Intake: ll1 1000ml 15:23 Follow up: Response: No adverse reaction; IV Status: Completed infusion; IV Intake: ll1 1000ml 15:22 Drug: Decadron - Dexamethasone 10 mg Route: IVP; Site: left antecubital; ll1 15:43 Follow up: Response: No adverse reaction ll1 15:23 Drug: Lovenox (enoxaparin) 1 mg/kg Route: Sub-Q; Site: left upper abdomen; ll1 15:55 Follow up: Response: No adverse reaction; RASS: Alert and Calm (0) ll1 15:23 Drug: Cefepime 1 grams Route: IVPB; Rate: 200 ml/hr; Infused Over: 30 mins; Site: left ll1 antecubital; 15:42 Follow up: Response: No adverse reaction; IV Status: Completed infusion; IV Intake: [id number] 15:55 Drug: vancoMYCIN 1 grams Route: IVPB; Infused Over: 2 hrs; Site: left antecubital; ll1 18:56 Follow up: Response: No adverse reaction; IV Status: Completed infusion; IV Intake: ll1 250ml 18:30 Drug: NS 0.9% 1000 ml Route: IV; Rate: 1000 ml; Site: left antecubital; ll1 19:51 Follow up: IV Status: Completed infusion; IV Intake: 1000ml lp1 Intake: 13:15 IV: 1000ml; Total: 1000ml. ll1 15:23 IV: 1000ml; Total: 2000ml. ll1 15:42 IV: 20ml; Total: 2020ml. ll1 18:56 IV: 250ml; Total: 2270ml. ll1 19:51 IV: 1000ml; Total: 3270ml. lp1 Outcome: 16:16 Decision to Hospitalize by Provider. kdr 19:51 Admitted to ER Hold. Please see [facility] for further documentation. lp1 19:51 Condition: stable 19:51 Instructed on the need for admit. 03/07 22:04 Patient left the ED. bb Signatures: Dispatcher [employer] EDMS Francisco Veras MD MD kdr Martinez, Amelia as Ballard, Brenda, RN RN cyrus Conti, Anderson Dempsey em1 Carrie Coleman RN RN aa5 Julia Amaya RN RN lp1 Viki Duff RN RN jl7 Ruth Menezes RN RN ll1
--- NOTE | 2021-03-05 16:17 | EDPHYS ---
Physician Documentation [facility] Name: Víctor Alexis Age: 55 yrs Sex: Female : 1965 Arrival Date: 03/05/2021 Time: 09:56 Bed 14 Private MD: Neno Castorena ED Physician Francisco Veras Historical: - Allergies: 03/05 11:07 Levaquin; jl7 - PMHx: 11:07 ADD/ADHD; Anxiety; Bipolar disorder; Diabetes - NIDDM; jl7 - Immunization history:: Adult Immunizations unknown, Client reports having NOT received the Covid vaccine. - Social history:: Smoking status: Patient denies any tobacco usage or history of. Vital Signs: 11:05 BP 131 / 79; Pulse 124; Resp 32; Temp 98.2; Pulse Ox 76% on R/A; Weight 102.06 kg; jl7 Height 5 ft. 7 in. (170.18 cm); 12:17 BP 116 / 93; Pulse 107; Resp 20; Pulse Ox 95% on Non-rebreather mask; ll1 13:25 BP 112 / 68; Pulse 83; Resp 19; Pulse Ox 98% on Non-rebreather mask; ll1 15:56 BP 101 / 64; Pulse 103; Resp 19; Pulse Ox 94% on Non-rebreather mask; ll1 19:30 BP 113 / 80; Pulse 103; Resp 22; Pulse Ox 94% on 50% Venturi mask; lp1 11:05 Body Mass Index 35.24 (102.06 kg, 170.18 cm) jl7 MDM: 16:16 Patient medically screened. [facility] 03/05 11:03 Order name: Basic Metabolic Panel; Complete Time: 14:31 kdr 03/05 11:03 Order name: CBC with Diff; Complete Time: 14:31 kdr 03/05 11:03 Order name: Protime (+inr); Complete Time: 14:31 kdr 03/05 11:03 Order name: Ptt, Activated; Complete Time: 14:31 kdr 03/05 11:17 Order name: Urine Dipstick-Ancillary; Complete Time: 14:31 EDMS 03/05 11:18 Order name: Blood Culture Adult (2) kdr 03/05 11:18 Order name: C-Reactive Protein kdr 03/05 11:18 Order name: D-Dimer kdr 03/05 11:18 Order name: Ferritin [facility] 03/05 11:18 Order name: Flu [facility] 03/05 11:18 Order name: LFT's; Complete Time: 14:31 [facility] 03/05 11:18 Order name: Lactate [facility] 03/05 11:18 Order name: Lipase; Complete Time: 14:31 [facility] 03/05 11:18 Order name: Procalcitonin; Complete Time: 14:31 [facility] 03/05 11:18 Order name: Strep [facility] 03/05 11:18 Order name: Troponin (emerg Dept Use Only); Complete Time: 14:31 [facility] 03/05 11:18 Order name: Urine Microscopic Only; Complete Time: 14:31 [facility] 03/05 11:18 Order name: Blood Culture [facility] 03/05 11:18 Order name: C-Reactive Protein; Complete Time: 14:31 [facility] 03/05 11:18 Order name: D-Dimer; Complete Time: 14:31 [facility] 03/05 11:18 Order name: Ferritin; Complete Time: 14:31 [facility] 03/05 11:18 Order name: Influenza Screen (A ; Complete Time: 14:31 [facility] 03/05 13:30 Order name: Urine Dipstick-Ancillary; Complete Time: 14:31 [facility] 03/05 16:07 Order name: Throat Culture [facility] 03/05 17:23 Order name: T4 Free [facility] 03/05 17:23 Order name: Thyroid Stimulating Hormone [facility] 03/05 17:23 Order name: Troponin I [facility] 03/05 11:03 Order name: CT Stroke Brain w/o Contrast; Complete Time: 14:31 [facility] 03/05 11:03 Order name: Stroke CXR 1 View; Complete Time: 14:31 [facility] 03/05 14:36 Order name: CT Chest For PE Angio; Complete Time: 15:21 [facility] 03/05 17:26 Order name: Lipid Profile [facility] 03/05 17:26 Order name: Hemoglobin A1c [facility] 03/05 17:28 Order name: ABG Arterial Blood Gas [facility] 03/05 17:35 Order name: Echo with Doppler [facility] 03/05 18:11 Order name: SARS-COV-2 RT PCR [facility] 03/05 21:24 Order name: Glucose, Ancillary Testing [facility] 03/05 21:57 Order name: Lactate Sepsis 2 HR Follow-up [facility] 03/06 01:54 Order name: PTT, Activated Partial Thromb EDMS 03/06 04:00 Order name: PTT, Activated Partial Thromb EDMS 03/06 04:02 Order name: CBC with Automated Diff EDMS 03/06 04:42 Order name: Manual Differential EDMS 03/06 05:14 Order name: Basic Metabolic Panel ED[facility] 03/06 09:06 Order name: Glucose, Ancillary Testing EDMS 03/06 12:43 Order name: Potassium EDMS 03/06 12:48 Order name: Glucose, Ancillary Testing EDMS 03/06 19:48 Order name: Glucose, Ancillary Testing EDMS 03/07 05:43 Order name: PTT, Activated Partial Thromb EDMS 03/07 05:47 Order name: Basic Metabolic Panel EDMS 03/07 08:45 Order name: Glucose, Ancillary Testing EDMS 03/07 10:33 Order name: CBC with Automated Diff EDMS 03/07 11:54 Order name: Manual Differential EDMS 03/07 12:36 Order name: Comprehensive Metabolic Panel EDMS 03/07 12:36 Order name: Ferritin EDMS 03/07 13:15 Order name: Glucose, Ancillary Testing EDMS 03/07 18:16 Order name: Glucose, Ancillary Testing EDMS 03/07 20:24 Order name: Glucose, Ancillary Testing EDMS 03/05 11:03 Order name: EKG; Complete Time: 11:11 kdr 03/05 11:03 Order name: Accucheck; Complete Time: 18:56 kdr 03/05 11:03 Order name: Cardiac monitoring; Complete Time: 13:16 kdr 03/05 11:03 Order name: EKG - Nurse/Tech; Complete Time: 13:15 kdr 03/05 11:03 Order name: IV Saline Lock; Complete Time: 11:14 kdr 03/05 11:03 Order name: Labs collected and sent; Complete Time: 11:14 kdr 03/05 11:03 Order name: NPO; Complete Time: 11:14 kdr 03/05 11:03 Order name: O2 Per Protocol; Complete Time: 11:14 kdr 03/05 11:03 Order name: O2 Sat Monitoring; Complete Time: 11:14 kdr 03/05 11:03 Order name: Stroke Swallow Screen; Complete Time: 18:56 kdr 03/05 11:18 Order name: Droplet/Contact Precautions; Complete Time: 11:38 kdr 03/05 11:18 Order name: Rommel; Complete Time: 13:15 kdr 03/05 11:18 Order name: Urine Dipstick-Ancillary (obtain specimen); Complete Time: 13:15 kdr 03/05 17:23 Order name: Heart Healthy EDMS Administered Medications: 12:17 Drug: NS 0.9% 1000 ml Route: IV; Rate: 1 bolus; Site: left antecubital; ll1 13:15 Follow up: Response: No adverse reaction; IV Status: Completed infusion; IV Intake: ll1 1000ml 15:23 Follow up: Response: No adverse reaction; IV Status: Completed infusion; IV Intake: ll1 1000ml 15:22 Drug: Decadron - Dexamethasone 10 mg Route: IVP; Site: left antecubital; ll1 15:43 Follow up: Response: No adverse reaction ll1 15:23 Drug: Lovenox (enoxaparin) 1 mg/kg Route: Sub-Q; Site: left upper abdomen; ll1 15:55 Follow up: Response: No adverse reaction; RASS: Alert and Calm (0) ll1 15:23 Drug: Cefepime 1 grams Route: IVPB; Rate: 200 ml/hr; Infused Over: 30 mins; Site: left ll1 antecubital; 15:42 Follow up: Response: No adverse reaction; IV Status: Completed infusion; IV Intake: [id number] 15:55 Drug: vancoMYCIN 1 grams Route: IVPB; Infused Over: 2 hrs; Site: left antecubital; ll1 18:56 Follow up: Response: No adverse reaction; IV Status: Completed infusion; IV Intake: ll1 250ml 18:30 Drug: NS 0.9% 1000 ml Route: IV; Rate: 1000 ml; Site: left antecubital; ll1 19:51 Follow up: IV Status: Completed infusion; IV Intake: 1000ml lp1 Disposition Summary: 03/05/21 16:16 Hospitalization Ordered Hospitalization Status: Inpatient Admission kdr Provider: Curz Chan kdr Condition: Serious kdr Problem: new kdr Symptoms: have improved kdr Bed/Room Type: Standard kdr Location: Intensive Care Unit(03/07/21 16:33) dw Room Assignment: 3-(03/07/21 16:33) dw Diagnosis - SARS-associated coronavirus as the cause of diseases classified elsewhere kdr - Acute left base pulmonary embolism kdr - Viral pneumonia, unspecified kdr Forms: - Medication Reconciliation Form kdr - SBAR form kdr Signatures: Dispatcher [employer] EDMS Yolanda Key RN RN dw Francisco Veras MD MD kdr Carrie Coleman, RN RN aa5 Tiesha Miller RN RN tl1 Viki Duff RN RN jl7 Ruth Menezes RN RN ll1 Julia Amaya RN lp1 Corrections: (The following items were deleted from the chart) 16:12 15:38 CORONAVIRUS+MR.LAB.BRZ ordered. EDNC EDMS 20:35 16:16 Telemetry/MedSurg (Inpatient) kdr tl1 20:35 16:16 kdr tl1 03/07 16:33 08 20:35 [facility] ER HOLD tl1 dw 03/07 16:33 08 20:35 ERHOLD- tl1 dw
[2021-03-05] MEDS ORDERED: LABETALOL 20 MG/4ML SYRINGE IV PRN (17:12)
[2021-03-05] MEDS ORDERED: SODIUM CHLORIDE 0.9% 10ML INJ IV PRN (17:13)
[2021-03-05] MEDS ORDERED: ACETAMINOPHEN 500 MG TAB PO PRN (17:20)
[2021-03-05] MEDS ORDERED: HYDROCODONE/APAP 5/325 MG TAB PO PRN (17:23)
[2021-03-05] MEDS ORDERED: ALBUTEROL INHALER 60 PUFF/8 GM IH PRN (17:23)
[2021-03-05] MEDS ORDERED: LORazepam 2 MG/ML VIAL IV PRN (17:24)
--- NOTE | 2021-03-05 17:35 | P.HP ---
Certification for Inpatient Patient admitted to: Inpatient With expected LOS: >2 Midnights Patient will require the following post-hospital care: None Practitioner: I am a practitioner with admitting privileges, knowledge of patient current condition, hospital course, and medical plan of care. Services: Services provided to patient in accordance with Admission requirements found in Title 42 Section 412.3 of the Code of Federal Regulations <KendalwilliamYimi barriospedromil Willy - Last Filed: 03/05/21 17:58> Patient History Date of Service: 03/05/21 Reason for admission: SOB History of Present Illness: Patient is a 55-year-old female with a past medical history significant for bipolar disorder, anxiety disorder, HLD, COPD and DM2 who presents with complaint of shortness of breath that has been ongoing for the past 7 days. Patient reported that she traveled to [facility] about 2 weeks ago and fell sick 5 days after getting there. Spouse reported that he drove to [facility] and brought her home by road. The journey took more than 40 hours. Patient reports associated signs and symptoms of weakness, fatigue, cough and generalized body pains. Patient denies any other signs and symptoms. Symptoms are aggravated by exertion and relieved by nothing. Patient decided to present to the hospital due to worsening symptoms. Of note, patient's O2 sat was noted to be in the 70s on room air on presentation to the ER - Past Medical/Surgical History Diabetic: No -: Bipolar disorder -: GERD -: Crohn's colitis -: Chronic foot pain -: Carpal tunnel syndrome -: Tarsal tunnel syndrome -: copd -: She has had 7 hernia repairs -: Recent right foot surgery -: Right tarsal tunnel surgery -: Carpal tunnel surgery -: Appendectomy -: Hysterectomy -: Breast biopsies -: tumor removed from left arm Psychosocial/ Personal History: She is , has 2 children, she does not wor k. - Family History Family History: Reviewed- Non-Contributory (Reviewed and patient unaware of any family history) - Social History Smoking Status: Former smoker Alcohol use: No CD- Drugs: No Caffeine use: Yes Place of Residence: Home <Evan Cristobal - Last Filed: 03/05/21 17:58> Date of Service: 03/05/21 <Cruz Chan - Last Filed: 03/06/21 15:53> Allergies levofloxacin [From Levaquin] Allergy (Verified 01/18/20 08:54) facial swelling/Itching/Hives/Rash Home Medications: [place] Carbonate [Lithotabs 300MG] 3 tab PO DAILY 07/12/16 Omeprazole 1 tab PO DAILY 07/12/16 Quetiapine [Seroquel] 50 mg PO BEDTIME 07/12/16 Atorvastatin Calcium [Lipitor] 20 mg PO BEDTIME 01/19/17 Cholecalciferol (Vitamin D3) [Vitamin D 1000 Iu Tab] 1,000 unit PO DAILY 01/19/17 Multivitamin [Daily Multivitamin] 1 each PO DAILY 01/19/17 ALPRAZolam [Xanax] 0.5 mg PO BID PRN 01/18/20 Lactobacillus Acidophilus [Probiotic] 1 each PO DAILY 01/18/20 Venlafaxine HCl [Effexor XR] 2 tab PO DAILY 01/18/20 Zaleplon 10 mg PO DAILY 01/18/20 hydrOXYzine HCL [Atarax] 25 mg PO DAILY 01/18/20 Review of Systems General: Weakness, Malaise, Other (fatigue, generalized body pains ) ENT: Unremarkable Respiratory: Cough, Shortness of Breath, SOB with Excertion Cardiovascular: Unremarkable Gastrointestinal: Unremarkable Genitourinary: Unremarkable Musculoskeletal: Other (Generalized Body pains) Integumentary: Unremarkable Neurological: Unremarkable <Evan Cristobal - Last Filed: 03/05/21 17:58> 10-point ROS is otherwise unremarkable <Cruz Chan - Last Filed: 03/06/21 15:53> Physical Examination - Physical Exam General: Alert, Oriented x3, Moderate distress HEENT: PERRLA Neck: Supple, 2+ carotid pulse no bruit, No LAD, Without JVD or thyroid abnormality Respiratory: Diminished Cardiovascular: Regular rate/rhythm, Normal S1 S2 Capillary refill: <2 Seconds Gastrointestinal: Normal bowel sounds, No tenderness Musculoskeletal: No clubbing, No tenderness Integumentary: No rashes Neurological: Normal gait, Normal speech, Normal tone, Normal affect Lymphatics: No axilla or inguinal lymphadenopathy External genitalia: Deferred Rectal: Deferred - Studies Laboratory Data (last 24 hrs) 03/05/21 12:10: Total Bilirubin 0.9, AST 63 H, ALT 43, Alkaline Phosphatase 136 H, Lipase 378 03/05/21 12:10: PT 18.6 H, INR 1.61, APTT 23.7 L 03/05/21 12:10: Sodium 138, Potassium 3.2 L, BUN 8, Creatinine 0.89, Glucose 154 H 03/05/21 11:03: WBC 18.30 H, Hgb 14.2, Hct 42.1, Plt Count 194 Microbiology Data (last 24 hrs): 03/05/21 15:25 Throat Group A Streptococcus Rapid Screen - Final 03/05/21 12:00 Nasopharnyx Influenza Type A Antigen Screen - Final 03/05/21 12:00 Nasopharnyx Influenza Type B Antigen Screen - Final <Evan Cristobal - Last Filed: 03/05/21 17:58> - Vital Signs Temperature: 98 F Blood Pressure: 110/80 Pulse: 80 Respirations: 18 Pulse Ox (%): 95 - Studies Laboratory Data (last 24 hrs) 03/05/21 12:07: Triglycerides 203 H, Cholesterol 144, HDL Cholesterol 21 L, Cholesterol/HDL Ratio 6.86 Microbiology Data (last 24 hrs): 03/05/21 15:25 Throat Group A Streptococcus Rapid Screen - Final 03/05/21 12:00 Nasopharnyx Influenza Type A Antigen Screen - Final 03/05/21 12:00 Nasopharnyx Influenza Type B Antigen Screen - Final <Cruz Chan - Last Filed: 03/06/21 15:53> Assessment and Plan - Plan --Pulmonary embolism. As noted on CT angiogram. Patient given a one-time dose of Lovenox in the ER. Heparin drip for PE protocol initiated. Echocardiogram to assess for right heart strain. Continue supportive care. --Atypical pneumonia. Likely COVID-19 pneumonia. Patient placed on antibiotics, steroids, albuterol inhaler and O2 therapy. Continue supportive care. --Acute respiratory failure with hypoxia. Likely secondary to PE and pneumonia. Continue current treatment regimen. We will get an ABG levels. Continue supportive care. --Suspected COVID-19 infection. Test results pending. Continue droplet, contact and airborne precautions. --Sepsis. Blood cultures pending. Continue antibiotics. --HLD. Continue statin. --Anxiety disorder\bipolar disorder. Continue home medications. --Acute on chronic COPD exacerbation. Continue current treatment regimen. --DM 2. BS monitoring with sliding scale insulin. --Class II obesity. Likely secondary to excess calories intake. Patient counseled on diet and assessed therapy. --Hypokalemia. Replete as needed. --CKD 2. Stable. We will continue to monitor renal functions. --DVT prophylaxis with heparin drip. I have had discussion about advanced directives with the patient during this hospital admission. Addressed code status and /or goals of care. Spent more than 15 minutes. Case discussed withpatient and nurse. Discharge Plan: Home Plan to discharge in: 48 Hours - Advance Directives Does patient have a Living Will: No Does patient have a Durable POA for Healthcare: No - Code Status/Comfort Care Code Status Assessed: Yes Code Status: Full Code Physician Review: Patient Assessed, Agree with Above Assessment and Plan Critical Care: No <Evan Cristobal - Last Filed: 03/05/21 17:58> Date of Service: 03/05/21 Subjective: No significant changes Physical Examination: Vitals: Afebrile vital signs are stable Physical exam: Cardiovascular: Within normal limits. Lungs: Within normal limits Abdomen: Within normal limits Neuro: Awake, alert, oriented to person place and time Assessment: 1. Pulmonary embolism 2. COVID-19 pneumonia Plan: 1. Continue with current plan of care <Cruz Chan - Last Filed: 03/06/21 15:53>
[2021-03-05] MEDS ORDERED: CEFEPIME/SWI 1gm 10 ML IVP SCH (17:45)
[2021-03-05] MEDS ORDERED: HEPARIN 5000 UNIT/ML 1 ML VIAL IV PRN (17:48)
[2021-03-05 17:58] LABS: Thyroid Stimulating Hormone 0.52 uIU/mL (0.360-3.740)
[2021-03-05] MEDS: METHYLPREDNISOLONE 40 MG INJ IV SCH (18:00)
[2021-03-05] MEDS ORDERED: POTASSIUM CL SA 10 MEQ TAB PO ONE ×2 (18:00→21:24)
[2021-03-05] MEDS ORDERED: HEPARIN 5000 UNIT/ML 1 ML VIAL IV ONE (18:00)
[2021-03-05 18:17] LABS: Blood Gas Oxyhemoglobin 89.4 % (94-97); Blood O2 Saturation 91.1 % (92-98.5)
[2021-03-05] MEDS: CEFEPIME/SWI 1gm 10 ML IVP SCH (20:48)
[2021-03-05] MEDS: HEPARIN/D5W 25,000 UNIT/500 ML BAG IV PRN (21:00)
[2021-03-05] MEDS ORDERED: CEFEPIME 1 GM/VIAL IV SCH (21:00)
[2021-03-05] MEDS: INSULIN -REGULAR HUMAN 50 UNIT/0.5 ML ML SQ SCH (21:00)
[2021-03-05] MEDS ORDERED: HEPARIN/D5W 25,000 UNIT/500 ML BAG IV ONE (21:24)
[2021-03-05] MEDS ORDERED: INSULIN -REGULAR HUMAN 50 UNIT/0.5 ML ML ONE (22:05)
[2021-03-05] MEDS ORDERED: LORazepam 2 MG/ML VIAL ONE (22:06)
[2021-03-05] MEDS ORDERED: ALBUTEROL 2.5 MG/3 ML NEB SOL NEB PRN (22:57)
[2021-03-05] MEDS ORDERED: IPRATROPIUM BROM 0.5MG/2.5ML NEB PRN (22:57)
[2021-03-05] MEDS ORDERED: ALBUTEROL 2.5 MG/3 ML NEB SOL ONE (23:31)
[2021-03-06] MEDS ORDERED: VANCOMYCIN/NS 1 gm 1 GM/250 ML BAG IVPB ONE (01:00)
[2021-03-06] MEDS: METHYLPREDNISOLONE 40 MG INJ IV SCH ×3 (01:00→17:00)
[2021-03-06] MEDS ORDERED: METHYLPREDNISOLONE 40 MG INJ ONE ×2 (02:23→09:25)
[2021-03-06 03:56] LABS: Absolute Lymphocytes (CBC) 1.6 K/uL (0.7-4.9); Basophils % 0.3 % (0-1.3); Hematocrit 34.7 % (36.0-45.0); MPV 8.7 fL (7.6-11.3); RBC Red Blood Cell Count 4.05 M/uL (3.86-4.86)
[2021-03-06 04:42] LABS: Blood Morphology Comment NOT SEEN (NOT SEEN); Platelet Estimate ADEQ
[2021-03-06 05:13] LABS: Potassium 3.4 mmol/L (3.5-5.1)
[2021-03-06] MEDS ORDERED: KCL 20 MEQ/100 mL IVPB 20 MEQ/100 ML BAG IV SCH (06:00)
[2021-03-06] MEDS ORDERED: KCL 20 MEQ/100 mL IVPB 20 MEQ/100 ML BAG IV ONE (06:45)
[2021-03-06] MEDS ORDERED: NA CHLORIDE 0.9% 100 ML ONE (06:57)
[2021-03-06] MEDS ORDERED: VANCOMYCIN/NS 1 gm 1 GM/250 ML BAG IVPB SCH (08:00)
[2021-03-06] MEDS ORDERED: NA CHLORIDE 0.9% 1,000 ML ONE (08:05)
[2021-03-06] MEDS ORDERED: CEFEPIME/SWI 1gm 10 ML ONE ×2 (08:43→20:36)
[2021-03-06] MEDS: INSULIN -REGULAR HUMAN 50 UNIT/0.5 ML ML SQ SCH ×4 (08:54→21:00)
[2021-03-06] MEDS: CEFEPIME/SWI 1gm 10 ML IVP SCH ×2 (09:00→21:00)
[2021-03-06] MEDS: ASPIRIN 81 MG CHEWABLE TABLET PO SCH (09:00)
[2021-03-06] MEDS: PANTOPRAZOLE 40 MG INJ IVP SCH (09:00)
[2021-03-06] MEDS ORDERED: INSULIN -REGULAR HUMAN 50 UNIT/0.5 ML ML ONE ×3 (09:24→20:40)
[2021-03-06] MEDS ORDERED: PANTOPRAZOLE 40 MG INJ ONE (09:25)
[2021-03-06] MEDS ORDERED: ASPIRIN 81 MG CHEWABLE TABLET ONE (09:25)
[2021-03-06] MEDS ORDERED: VANCOMYCIN 2 GM in NA CHLORIDE 0.9% 500 ML IVPB SCH (12:00)
[2021-03-06] MEDS ORDERED: HEPARIN/D5W 25,000 UNIT/500 ML BAG IV ONE (12:06)
[2021-03-06] MEDS: VANCOMYCIN 2 GM in NA CHLORIDE 0.9% 500 ML IVPB SCH (12:33)
--- NOTE | 2021-03-06 15:02 | ECHO ---
HEIGHT: 5 ft 5 in WEIGHT: 255 lb 0 oz DATE OF STUDY: 03/06/[address]: Evan Cristobal 2-DIMENSIONAL: YES M.MODE: YES DOPPLER: YES COLOR FLOW: YES TDS: NO PORTABLE: NO DEFINITY: NO BUBBLE STUDY: NO DIAGNOSIS: PLUERAL EMBOLISM/ ASSESS FOR RIGHT HEART STRAIN CARDIAC HISTORY: CATHERIZATION: NO SURGERY: NO PROSTHETIC VALVE: NO PACEMAKER: NO MEASUREMENTS (cm) DIASTOLIC (NORMALS) SYSTOLIC (NORMALS) IVSd 0.9 (0.6-1.2) LA Diam 2.5 (1.9-4.0) LVEF 55-60% LVIDd 5.0 (3.5-5.7) LVIDs 3.7 (2.0-3.5) %FS 25% LVPWd 0.9 (0.6-1.2) Ao Diam 2.8 (2.0-3.7) 2 DIMENSIONAL ASSESSMENT: RIGHT ATRIUM: NORMAL LEFT ATRIUM: NORMAL RIGHT VENTRICLE: NORMAL LEFT VENTRICLE: NORMAL TRICUSPID VALVE: MILD TRICUSPID REGURGITATION MITRAL VALVE: NORMAL PULMONIC VALVE: NORMAL AORTIC VALVE: NORMAL PERICARDIAL EFFUSION: NONE AORTIC ROOT: NORMAL LEFT VENTRICULAR WALL MOTION: NORMAL. DOPPLER/COLOR FLOW: MILD TRICUSPID REGURGITATION. COMMENTS: NORMAL LEFT VENTRICULAR EJECTION FRACTION 55-60%. NORMAL WALL MOTION. MILD TRICUSPID REGURGITATION. TECHNOLOGIST: MIKA DUMONT
--- NOTE | 2021-03-06 16:06 | P.PN ---
Subjective Date of Service: 03/06/21 Subjective: No new changes, Improving Patient was very agitated last night. However, she is currently feeling better. Otherwise, no new complaints. Patient clinical status is slowly improving. Review of Systems 10-point ROS is otherwise unremarkable Physical Examination - Vital Signs Temperature: 98 F Blood Pressure: 110/80 Pulse: 80 Respirations: 18 Pulse Ox (%): 95 - Physical Exam General: Alert, In no apparent distress, Oriented x3 Respiratory: Diminished Cardiovascular: Regular rate/rhythm, Normal S1 S2, No murmurs Gastrointestinal: Normal bowel sounds, Soft and benign, Non-distended, No tenderness Musculoskeletal: No tenderness Integumentary: No rashes Neurological: Normal speech, Normal tone, Normal affect Lymphatics: No axilla or inguinal lymphadenopathy - Studies Laboratory Data (last 24 hrs) 03/05/21 12:07: Triglycerides 203 H, Cholesterol 144, HDL Cholesterol 21 L, Cholesterol/HDL Ratio 6.86 Microbiology Data (last 24 hrs): 03/05/21 15:25 Throat Group A Streptococcus Rapid Screen - Final 03/05/21 12:00 Nasopharnyx Influenza Type A Antigen Screen - Final 03/05/21 12:00 Nasopharnyx Influenza Type B Antigen Screen - Final Medications List Reviewed: Yes Assessment & Plan - Problems (Diagnosis) (1) Pneumonia due to COVID-19 virus Current Visit: Yes Status: Acute (2) Bipolar disorder Onset Date: 07/13/16 Current Visit: No Status: Chronic Qualifiers: Active/Remission status: remission status unspecified Qualified Code(s): F31.9 - Bipolar disorder, unspecified - Plan 1. Continue with IV steroids 2. Monitor inflammatory markers 3. Repeat chest x-ray 4. O2 per protocol 5. Pulmonary consultation 6. Continue with albuterol inhaler therapy; also supportive care 7. Monitor LFTs 8. GI and DVT prophylaxis Discharge Plan: Home Plan to discharge in: Greater than 2 days - Advance Directives Does patient have a Living Will: No Does patient have a Durable POA for Healthcare: No - Code Status/Comfort Care Code Status: Full Code Physician Review: Patient Assessed, Agree with Above Assessment and Plan Critical Care: No Time Spent Managing PTS Care (In Minutes): 35
[2021-03-06] MEDS ORDERED: METHYLPREDNISOLONE 125 MG INJ ONE (20:37)
[2021-03-07] MEDS: METHYLPREDNISOLONE 40 MG INJ IV SCH ×3 (01:00→17:00)
[2021-03-07] MEDS ORDERED: METHYLPREDNISOLONE 40 MG INJ ONE ×3 (01:42→17:41)
[2021-03-07] MEDS ORDERED: HEPARIN/D5W 25,000 UNIT/500 ML BAG IV ONE (02:25)
[2021-03-07] MEDS: HEPARIN/D5W 25,000 UNIT/500 ML BAG IV PRN (02:54)
[2021-03-07] MEDS: VANCOMYCIN 2 GM in NA CHLORIDE 0.9% 500 ML IVPB SCH ×2 (04:00→22:57)
[2021-03-07] MEDS ORDERED: NA CHLORIDE 0.9% 250 ML ONE (04:43)
[2021-03-07] MEDS ORDERED: VANCOMYCIN 1 GM/VIAL ONE ×2 (04:44→04:49)
[2021-03-07 05:46] LABS: Potassium 3.5 mmol/L (3.5-5.1)
--- NOTE | 2021-03-07 07:29 | P.PN ---
Date of Service: 03/07/21 Subjective Dc heparin. Start Eliquis. Wean down oxygen requirements. Patient clinically feeling a little bit better. She is talking to me in full sentences now. She states she is noticing that her symptoms are improved. Review of Systems 10-point ROS is otherwise unremarkable Physical Examination - Vital Signs Reviewed - Physical Exam General: Alert, In no apparent distress, Oriented x3 Respiratory: Diminished Cardiovascular: Regular rate/rhythm, Normal S1 S2, No murmurs Gastrointestinal: Normal bowel sounds, Soft and benign, Non-distended, No tenderness Neurological: Normal speech, Normal tone, Normal affect Assessment & Plan - Problems (Diagnosis) (1) Pneumonia due to COVID-19 virus Current Visit: Yes Status: Acute (2) Bipolar disorder Onset Date: 07/13/16 Current Visit: No Status: Chronic Qualifiers: Active/Remission status: remission status unspecified Qualified Code(s): F31.9 - Bipolar disorder, unspecified (3) Diabetes type 2 Onset Date: 03/06/21 Current Visit: No Status: Acute - Plan Continue with plan of care as mentioned below: 1. Continue with IV steroids and start oral anti coagulation; discontinue the heparin; CT scan with distal left lower lobe pulmonary embolism and echocardiogram with no significant abnormalities; no RV strain noted on either diagnostic studies 2. Monitor inflammatory markers 3. Repeat chest x-ray as needed 4. O2 per protocol; currently on high-flow and will wean down 5. Strict blood sugar control 6. Continue with albuterol inhaler therapy; also supportive care 7. Monitor LFTs 8. GI and DVT prophylaxis Discharge Plan: Home Plan to discharge in: Greater than 2 days - Advance Directives Does patient have a Living Will: No Does patient have a Durable POA for Healthcare: No - Code Status/Comfort Care Code Status: Full Code Physician Review: Patient Assessed, Agree with Above Assessment and Plan Critical Care: No Time Spent Managing PTS Care (In Minutes): 35
[2021-03-07] MEDS: INSULIN -REGULAR HUMAN 50 UNIT/0.5 ML ML SQ SCH ×4 (07:30→21:00)
[2021-03-07] MEDS ORDERED: APIXABAN 5 MG TABLET ONE ×2 (08:26→20:47)
[2021-03-07] MEDS ORDERED: ASPIRIN 81 MG CHEWABLE TABLET ONE (08:26)
[2021-03-07] MEDS ORDERED: PANTOPRAZOLE 40 MG INJ ONE (08:27)
[2021-03-07] MEDS: ASPIRIN 81 MG CHEWABLE TABLET PO SCH (09:00)
[2021-03-07] MEDS: APIXABAN 5 MG TABLET PO SCH ×2 (09:00→21:00)
[2021-03-07] MEDS: PANTOPRAZOLE 40 MG INJ IVP SCH (09:00)
[2021-03-07] MEDS: CEFEPIME/SWI 1gm 10 ML IVP SCH ×2 (09:00→21:00)
[2021-03-07] MEDS ORDERED: INSULIN -REGULAR HUMAN 50 UNIT/0.5 ML ML ONE ×2 (09:11→20:53)
[2021-03-07 10:29] LABS: Absolute Lymphocytes (CBC) 2.3 K/uL (0.7-4.9); Basophils % 0.4 % (0-1.3); Hematocrit 33.3 % (36.0-45.0); Lymphocytes % 10.3 % (15.3-44.8); MPV 9.5 fL (7.6-11.3); RBC Red Blood Cell Count 3.84 M/uL (3.86-4.86)
[2021-03-07 11:47] LABS: Albumin 2.1 g/dL (3.4-5.0); Bilirubin Total 0.3 mg/dL (0.2-1.0); Ferritin 1181.7 ng/mL (8-388); Protein, Total 6.2 g/dL (6.4-8.2)
[2021-03-07 11:53] LABS: Platelet Estimate ADEQ
[2021-03-07 11:54] LABS: Blood Morphology Comment NOT SEEN (NOT SEEN); Polychromasia 1+
[2021-03-07 12:36] LABS: Potassium 3.9 mmol/L (3.5-5.1)
[2021-03-07] MEDS ORDERED: POTASSIUM CL SA 10 MEQ TAB PO ONE ×2 (20:47→21:00)
[2021-03-07] MEDS ORDERED: CEFEPIME/SWI 1gm 10 ML ONE (20:47)
[2021-03-08] MEDS: METHYLPREDNISOLONE 40 MG INJ IV SCH ×3 (01:00→16:22)
[2021-03-08 05:30] LABS: Absolute Lymphocytes (CBC) 1.1 K/uL (0.7-4.9); Basophils % 0.5 % (0-1.3); Hematocrit 33.8 % (36.0-45.0); Lymphocytes % 7.8 % (15.3-44.8); MPV 9.4 fL (7.6-11.3); RBC Red Blood Cell Count 3.89 M/uL (3.86-4.86)
[2021-03-08 06:03] LABS: Bilirubin Total 0.4 mg/dL (0.2-1.0); C-Reactive Protein 32.1 mg/L (<3.00); Ferritin 940.4 ng/mL (8-388); Potassium 3.8 mmol/L (3.5-5.1); Protein, Total 6.1 g/dL (6.4-8.2)
[2021-03-08 06:28] LABS: Magnesium 2.6 mg/dL (1.8-2.4); Phosphorus 4.1 mg/dL (2.5-4.9)
[2021-03-08] MEDS: INSULIN -REGULAR HUMAN 50 UNIT/0.5 ML ML SQ SCH ×4 (07:30→20:28)
[2021-03-08] MEDS: APIXABAN 5 MG TABLET PO SCH ×2 (08:30→20:27)
[2021-03-08] MEDS: ASPIRIN 81 MG CHEWABLE TABLET PO SCH (08:30)
[2021-03-08] MEDS: PANTOPRAZOLE 40 MG INJ IVP SCH (08:30)
[2021-03-08] MEDS: CEFEPIME/SWI 1gm 10 ML IVP SCH ×2 (09:00→20:28)
--- NOTE | 2021-03-08 09:13 | P.PN ---
Subjective Date of Service: 03/08/21 Chief Complaint: SOB Subjective: No new changes (feels better , states cough better now - on weaning down 02) Physical Examination - Vital Signs Temperature: 97.7 F Blood Pressure: 152/90 Pulse: 45 Respirations: 19 Pulse Ox (%): 95 - Physical Exam General: In no apparent distress, Oriented x3, Obese HEENT: Atraumatic, Normocephalic, PERRLA Neck: Supple, 2+ carotid pulse no bruit, JVD not distended Respiratory: Clear to auscultation bilaterally, Normal air movement Cardiovascular: No edema, Normal pulses, Regular rate/rhythm, Normal S1 S2 Gastrointestinal: Normal bowel sounds, Soft and benign, Non-distended Musculoskeletal: No clubbing, No swelling Neurological: Normal gait, Normal speech, Normal strength at 5/5 x4 extr, Normal tone - Studies Microbiology Data (last 24 hrs): 03/05/21 15:25 Throat Culture & Sensitivity - Final NORMAL UPPER RESPIRATORY SWATHI GROWN. Medications List Reviewed: Yes Assessment And Plan Plan to discharge in: Greater than 2 days Physician Review: Patient Assessed, Agree with Above Assessment and Plan Physician Review Additional Text: Covid pneumonia Left PE elevated LTs DM with Hyperglycemia Obesity PLAN - on weaning down high flow 02 - currently at 90% 35 L , -c/w IV steroids and Eliquis - c/w MDI prn -c/w to wean off -follow repeat and daily LFTs-improvd now -follow daily ferritin and CRP - rending down -c/w GI prophyalxis -c/w insulin regime Time Spent Managing PTS Care (In Minutes): 35
[2021-03-08] MEDS: VANCOMYCIN 2 GM in NA CHLORIDE 0.9% 500 ML IVPB SCH (16:21)
[2021-03-09] MEDS: METHYLPREDNISOLONE 40 MG INJ IV SCH ×3 (00:32→16:53)
[2021-03-09 04:54] VITALS: BMI 35.1
[2021-03-09 05:10] LABS: Absolute Lymphocytes (CBC) 1.1 K/uL (0.7-4.9); Basophils % 0.1 % (0-1.3); Hematocrit 34.9 % (36.0-45.0); Lymphocytes % 8.3 % (15.3-44.8); MPV 8.8 fL (7.6-11.3); RBC Red Blood Cell Count 4.01 M/uL (3.86-4.86)
[2021-03-09 05:49] LABS: Albumin 2.3 g/dL (3.4-5.0); Bilirubin Total 0.5 mg/dL (0.2-1.0); C-Reactive Protein 17.3 mg/L (<3.00); Ferritin 860.7 ng/mL (8-388); Magnesium 2.5 mg/dL (1.8-2.4); Potassium 4.2 mmol/L (3.5-5.1); Protein, Total 6.4 g/dL (6.4-8.2)
--- NOTE | 2021-03-09 05:51 | P.PN ---
Subjective Date of Service: 03/09/21 Chief Complaint: SOB Subjective: Improving (Currently on high flow 65%) Physical Examination - Vital Signs Temperature: 97 F Blood Pressure: 168/98 Pulse: 70 Respirations: 19 Pulse Ox (%): 89 - Studies Microbiology Data (last 24 hrs): 03/05/21 15:25 Throat Culture & Sensitivity - Final NORMAL UPPER RESPIRATORY SWATHI GROWN. Medications List Reviewed: Yes Assessment & Plan Discharge Plan: Home Plan to discharge in: Greater than 2 days Physician Review Additional Text: COVID: Positive CT Scan: COMPARISON: March 05, 2021 chest x-ray TECHNIQUE: Dynamically enhanced axial 3 mm thick images of the chest were obtained during administration of <100> mL Isovue 370 IV contrast. Coronal and oblique reconstruction images were generated and reviewed. Exam utilizes a protocol for optimal evaluation of pulmonary arterial tree. Maximum intensity projections 3D imaging was utilized All CT scans are performed using dose optimization technique as appropriate and may include automated exposure control or mA/KV adjustment according to patient size. FINDINGS: Left lower lobe pulmonary emboli. Main pulmonary and right pulmonary arteries are patent. A thoracic aortic aneurysm is not noted. A pleural effusion is not seen. A pericardial effusion is not seen. Moderate to marked bilateral ground-glass opacities within the lungs IMPRESSION: Left lower lobe pulmonary emboli Mild to moderate bilateral ground-glass opacities within the lungs can be seen with Covid pneumonia CT scan: COMPARISON: Head Brain Wo Cont dated 06/01/2018 TECHNIQUE: All CT scans are performed using dose optimization technique as appropriate and may include automated exposure control or mA/KV adjustment according to patient size. FINDINGS: No intracranial hemorrhage, hydrocephalus or extra-axial fluid collection.No areas of brain edema or evidence of midline shift. The paranasal sinuses and mastoids are clear. The calvarium is intact. IMPRESSION: No acute intracranial abnormality. ECHO: MEASUREMENTS (cm) DIASTOLIC (NORMALS) SYSTOLIC (NORMALS) IVSd 0.9 (0.6-1.2) LA Diam 2.5 (1.9-4.0) LVEF 55-60% LVIDd 5.0 (3.5-5.7) LVIDs 3.7 (2.0-3.5) %FS 25% LVPWd 0.9 (0.6-1.2) Ao Diam 2.8 (2.0-3.7) 2 DIMENSIONAL ASSESSMENT: RIGHT ATRIUM: NORMAL LEFT ATRIUM: NORMAL RIGHT VENTRICLE: NORMAL LEFT VENTRICLE: NORMAL TRICUSPID VALVE: MILD TRICUSPID REGURGITATION MITRAL VALVE: NORMAL PULMONIC VALVE: NORMAL AORTIC VALVE: NORMAL PERICARDIAL EFFUSION: NONE AORTIC ROOT: NORMAL LEFT VENTRICULAR WALL MOTION: NORMAL. DOPPLER/COLOR FLOW: MILD TRICUSPID REGURGITATION. COMMENTS: NORMAL LEFT VENTRICULAR EJECTION FRACTION 55-60%. NORMAL WALL MOTION. MILD TRICUSPID REGURGITATION. Physical exam: General: In no apparent distress, Oriented x3, Obese HEENT: Atraumatic, Normocephalic, PERRLA Neck: Supple, 2+ carotid pulse no bruit, JVD not distended Respiratory: Clear. Currently on 65% high flow. Cardiovascular: No edema, Normal pulses, Regular rate/rhythm, Normal S1 S2 Gastrointestinal: Normal bowel sounds, Soft and benign, Non-distended Musculoskeletal: No clubbing, No swelling Neurological: Normal gait, Normal speech, Normal strength at 5/5 x4 extr, Normal tone Impression: Dyspnea secondary to acute respiratory failure with bilateral Covid pneumonia complicated with left lower lobe pulmonary emboli Elevated liver function tests DM with Hyperglycemia Bipolar disorder Obesity, BMI 35 Plan: Patient overall improved. Continue IV steroids and supplementation. Continue to wean off oxygen. Currently on 65% high flow. Wean off to nasal cannula. Maintain sats above 93%. Encourage incentive spirometer, proning, ambulation. Patient remains on Eliquis for pulmonary emboli. Patient will need at least 3 months of therapy. Will need follow-up with pulmonology. Continue with pulmonology recommendations. Hemoglobin A1c 6.7. Will start Metformin. Continue Accu-Cheks and sliding scale. Will monitor closely. We will continue to adjust for better control. Restart home medication for bipolar disorder including Atarax, lithium, Seroquel and Effexor Anticipate continued improvement. CODE STATUS: Full code DVT prophylaxis: Eliquis Advanced care [id number] minutes: Home at discharge Time Spent Managing Pts Care (In Minutes): 55
[2021-03-09] MEDS: ASPIRIN 81 MG CHEWABLE TABLET PO SCH (07:47)
[2021-03-09] MEDS: INSULIN -REGULAR HUMAN 50 UNIT/0.5 ML ML SQ SCH ×4 (07:48→20:33)
[2021-03-09] MEDS: PANTOPRAZOLE 40 MG INJ IVP SCH (07:48)
[2021-03-09] MEDS: CEFEPIME/SWI 1gm 10 ML IVP SCH (07:48)
[2021-03-09] MEDS: APIXABAN 5 MG TABLET PO SCH ×2 (07:48→20:32)
[2021-03-09] MEDS ORDERED: FUROSEMIDE 40 MG TABLET PO SCH (09:00)
[2021-03-09] MEDS: VANCOMYCIN 2 GM in NA CHLORIDE 0.9% 500 ML IVPB SCH (10:00)
--- NOTE | 2021-03-09 10:28 | P.CNS ---
Date of Consult: 03/09/21 (TV) Reason for Consult: COVID penumonia and PE Chief Complaint: SOB History of Present Illness: Age 55 metabolic synd/Aw resp failure fromCOVID and pe/weakness .cough Allergies levofloxacin [From Levaquin] Allergy (Verified 01/18/20 08:54) facial swelling/Itching/Hives/Rash Home Medications: [place] Carbonate [Lithotabs 300MG] 3 tab PO DAILY 07/12/16 Omeprazole 1 tab PO DAILY 07/12/16 Quetiapine [Seroquel] 50 mg PO BEDTIME 07/12/16 Atorvastatin Calcium [Lipitor] 20 mg PO BEDTIME 01/19/17 Cholecalciferol (Vitamin D3) [Vitamin D 1000 Iu Tab] 1,000 unit PO DAILY 01/19/17 Multivitamin [Daily Multivitamin] 1 each PO DAILY 01/19/17 ALPRAZolam [Xanax] 0.5 mg PO BID PRN 01/18/20 Lactobacillus Acidophilus [Probiotic] 1 each PO DAILY 01/18/20 Venlafaxine HCl [Effexor XR] 2 tab PO DAILY 01/18/20 Zaleplon 10 mg PO DAILY 01/18/20 hydrOXYzine HCL [Atarax] 25 mg PO DAILY 01/18/20 - Past Medical/Surgical History Diabetic: No -: Bipolar disorder -: GERD -: Crohn's colitis -: Chronic foot pain -: Carpal tunnel syndrome -: Tarsal tunnel syndrome -: copd -: She has had 7 hernia repairs -: Recent right foot surgery -: Right tarsal tunnel surgery -: Carpal tunnel surgery -: Appendectomy -: Hysterectomy -: Breast biopsies -: tumor removed from left arm Psychosocial/ Personal History: She is , has 2 children, she does not work. - Social History Smoking Status: Unknown if ever smoked Alcohol use: No CD- Drugs: No Caffeine use: Yes Place of Residence: Home Review of Systems General: Weakness Respiratory: Cough, Shortness of Breath Physical Examination Temp Pulse Resp BP Pulse Ox 97.0 F 81 27 H 156/99 H 95 03/09/21 08:00 03/09/21 08:00 03/09/21 08:00 03/09/21 08:00 03/09/21 08:00 General: Alert, Oriented x3, Cooperative - Problems (1) Pneumonia due to COVID-19 virus Current Visit: Yes Status: Acute Plan: Pt AW penumonia.resp failure and LL PE/o2 satisfactory/labs reviewed/DC ABiotics/plan for D/C/anticoagualte for 3 months/cultures neg
[2021-03-09] MEDS: IVERMECTIN 3 MG TABLET PO SCH (12:03)
[2021-03-09] MEDS: QUETIAPINE 100MG TAB PO SCH (20:31)
[2021-03-09] MEDS: VENLAFAXINE HCL XR 75 MG CAP PO SCH (20:31)
[2021-03-09] MEDS: LITHIUM CARBONATE 300 MG TAB PO SCH (20:33)
[2021-03-09] MEDS: hydrOXYzine HCL 25 MG TAB PO SCH (20:34)
[2021-03-10] MEDS: METHYLPREDNISOLONE 40 MG INJ IV SCH ×3 (00:01→16:52)
[2021-03-10 05:20] LABS: Absolute Lymphocytes (CBC) 1.4 K/uL (0.7-4.9); Basophils % 0.3 % (0-1.3); Hematocrit 34.7 % (36.0-45.0); Lymphocytes % 12.4 % (15.3-44.8); MPV 8.6 fL (7.6-11.3)
[2021-03-10 05:48] LABS: Albumin 2.2 g/dL (3.4-5.0); Bilirubin Total 0.4 mg/dL (0.2-1.0); C-Reactive Protein 9.2 mg/L (<3.00); Magnesium 2.7 mg/dL (1.8-2.4); Phosphorus 3.8 mg/dL (2.5-4.9); Potassium 4.2 mmol/L (3.5-5.1)
--- NOTE | 2021-03-10 06:00 | P.PN ---
Subjective Date of Service: 03/10/21 Chief Complaint: SOB Subjective: Other (Patient reports improvement. She was on 6 L this morning.) Physical Examination - Vital Signs Temperature: 97.5 F Blood Pressure: 156/101 Pulse: 72 Respirations: 16 Pulse Ox (%): 96 - Studies Medications List Reviewed: Yes Assessment & Plan Discharge Plan: Home Plan to discharge in: 72 Hours Physician Review Additional Text: COVID: Positive CT Scan: COMPARISON: March 05, 2021 chest x-ray TECHNIQUE: Dynamically enhanced axial 3 mm thick images of the chest were obt ained during administration of <100> mL Isovue 370 IV contrast. Coronal and oblique reconstruction images were generated and reviewed. Exam utilizes a protocol for optimal evaluation of pulmonary arterial tree. Maximum intensity projections 3D imaging was utilized All CT scans are performed using dose optimization technique as appropriate and may include automated exposure control or mA/KV adjustment according to patient size. FINDINGS: Left lower lobe pulmonary emboli. Main pulmonary and right pulmonary arteries are patent. A thoracic aortic aneurysm is not noted. A pleural effusion is not seen. A pericardial effusion is not seen. Moderate to marked bilateral ground-glass opacities within the lungs IMPRESSION: Left lower lobe pulmonary emboli Mild to moderate bilateral ground-glass opacities within the lungs can be seen with Covid pneumonia CT scan: COMPARISON: Head Brain Wo Cont dated 06/01/2018 TECHNIQUE: All CT scans are performed using dose optimization technique as appropriate and may include automated exposure control or mA/KV adjustment according to patient size. FINDINGS: No intracranial hemorrhage, hydrocephalus or extra-axial fluid collection.No areas of brain edema or evidence of midline shift. The paranasal sinuses and mastoids are clear. The calvarium is intact. IMPRESSION: No acute intracranial abnormality. ECHO: MEASUREMENTS (cm) DIASTOLIC (NORMALS) SYSTOLIC (NORMALS) IVSd 0.9 (0.6-1.2) LA Diam 2.5 (1.9-4.0) LVEF 55-60% LVIDd 5.0 (3.5-5.7) LVIDs 3.7 (2.0-3.5) %FS 25% LVPWd 0.9 (0.6-1.2) Ao Diam 2.8 (2.0-3.7) 2 DIMENSIONAL ASSESSMENT: RIGHT ATRIUM: NORMAL LEFT ATRIUM: NORMAL RIGHT VENTRICLE: NORMAL LEFT VENTRICLE: NORMAL TRICUSPID VALVE: MILD TRICUSPID REGURGITATION MITRAL VALVE: NORMAL PULMONIC VALVE: NORMAL AORTIC VALVE: NORMAL PERICARDIAL EFFUSION: NONE AORTIC ROOT: NORMAL LEFT VENTRICULAR WALL MOTION: NORMAL. DOPPLER/COLOR FLOW: MILD TRICUSPID REGURGITATION. COMMENTS: NORMAL LEFT VENTRICULAR EJECTION FRACTION 55-60%. NORMAL WALL MOTION. MILD TRICUSPID REGURGITATION. Follow-up chest x-ray 03/10/2021 COMPARISON: Chest Single View dated 03/05/2021; Chest Single View dated 11/03/2019; Chest Pa And Lat (2 Views) dated 10/06/2019; Chest Pa And Lat (2 Views) dated 07/25/2017; Chest For Pe Angio dated 03/05/2021 FINDINGS: Widespread moderate patchy bilateral airspace disease is similar to 06/14/2021. Increased prominence of the cardiac silhouette.No acute osseous abnormality. No significant pleural effusions or pneumothorax. IMPRESSION: Moderate bilateral widespread airspace disease is not simply changed compared with 03/05/2021. Physical exam: General: In no apparent distress, Oriented x3, Obese HEENT: Atraumatic, Normocephalic, PERRLA Neck: Supple, 2+ carotid pulse no bruit, JVD not distended Respiratory: Clear. Currently on 65% high flow. Cardiovascular: No edema, Normal pulses, Regular rate/rhythm, Normal S1 S2 Gastrointestinal: Normal bowel sounds, Soft and benign, Non-distended Musculoskeletal: No clubbing, No swelling Neurological: Normal gait, Normal speech, Normal strength at 5/5 x4 extr, Normal tone Impression: Dyspnea secondary to acute respiratory failure with bilateral Covid pneumonia complicated with left lower lobe pulmonary emboli Elevated liver function tests DM with Hyperglycemia Bipolar disorder Obesity, BMI 35 Plan: Dyspnea secondary to acute respiratory failure with bilateral Covid pneumonia complicated with left lower lobe pulmonary emboli: Patient reports improvement. Currently on 6 L per nasal cannula. Previously on high flow. Continue wean off oxygen. Maintain sats above 93%. CRP and ferritin improved. Continue IV Solu- Medrol, vitamin supplementation. Will monitor lab closely. Encourage incentive spirometer, proning and ambulation. Patient remains on Eliquis 10 mg 1 pill twice daily. Patient will need at least 3 months of therapy. Continue to monitor closely. Anticipate improvement over the next 3 days. Elevated liver function tests: LFTs back to normal. DM with Hyperglycemia: Hemoglobin A1c 6.7. Continue Metformin. Continue Accu- Cheks and sliding scale. Bipolar disorder: Continue with Atarax 25 mg twice daily, lithium 300 mg 3 times a day, Seroquel 200 mg at bedtime and Effexor 150 mg 1 pill twice daily. Obesity, BMI 35: Patient overall improved. Continue lifestyle modification education. CODE STATUS: Full code DVT prophylaxis: Vinny Advanced care [id number] minutes: Home at discharge Time Spent Managing Pts Care (In Minutes): 55
--- NOTE | 2021-03-10 07:07 | RAD REPORT ---
EXAM DESCRIPTION: RAD - Chest Single View - 03/10/2021 5:37 am CLINICAL HISTORY: Follow-up Covid COMPARISON: Chest Single View dated 03/05/2021; Chest Single View dated 11/03/2019; Chest Pa And Lat ( 2 Views) dated 10/06/2019; Chest Pa And Lat (2 Views) dated 07/25/2017; Chest For Pe Angio dated 2020 FINDINGS: Widespread moderate patchy bilateral airspace disease is similar to 06/14/2021. Increased prominence of the cardiac silhouette.No acute osseous abnormality. No significant pleural effusions o r pneumothorax. IMPRESSION: Moderate bilateral widespread airspace disease is not simply changed compared with 03/05.
[2021-03-10] MEDS: INSULIN -REGULAR HUMAN 50 UNIT/0.5 ML ML SQ SCH ×4 (08:07→20:05)
[2021-03-10] MEDS: VENLAFAXINE HCL XR 75 MG CAP PO SCH ×2 (08:08→20:03)
[2021-03-10] MEDS: hydrOXYzine HCL 25 MG TAB PO SCH ×2 (08:08→20:03)
[2021-03-10] MEDS: APIXABAN 5 MG TABLET PO SCH ×2 (08:08→20:03)
[2021-03-10] MEDS: ASPIRIN 81 MG CHEWABLE TABLET PO SCH (08:08)
[2021-03-10] MEDS: LITHIUM CARBONATE 300 MG TAB PO SCH ×3 (08:08→20:03)
[2021-03-10] MEDS: METFORMIN HCL 500 MG TAB PO SCH (08:08)
[2021-03-10] MEDS: QUETIAPINE 100MG TAB PO SCH (20:05)
[2021-03-11] MEDS: METHYLPREDNISOLONE 40 MG INJ IV SCH ×4 (01:45→20:35)
[2021-03-11 04:50] LABS: Absolute Lymphocytes (CBC) 0.6 K/uL (0.7-4.9); Basophils % 0.1 % (0-1.3); Lymphocytes % 6.4 % (15.3-44.8); MPV 8.5 fL (7.6-11.3); RBC Red Blood Cell Count 4.25 M/uL (3.86-4.86)
[2021-03-11 05:17] LABS: Albumin 2.4 g/dL (3.4-5.0); Bilirubin Total 0.4 mg/dL (0.2-1.0); C-Reactive Protein 7.52 mg/L (<3.00); Ferritin 714.2 ng/mL (8-388); Magnesium 2.6 mg/dL (1.8-2.4); Phosphorus 2.8 mg/dL (2.5-4.9); Potassium 4.6 mmol/L (3.5-5.1); Protein, Total 6.4 g/dL (6.4-8.2)
[2021-03-11 05:31] LABS: Blood Morphology Comment NOT SEEN (NOT SEEN); Platelet Estimate ADEQ
--- NOTE | 2021-03-11 06:10 | P.PN ---
Subjective Date of Service: 03/11/21 Chief Complaint: SOB Subjective: Improving (Patient reports improvement. Stable on 6 L per nasal cannula.) Physical Examination - Vital Signs Temperature: 97 F Blood Pressure: 151/95 Pulse: 74 Respirations: 18 Pulse Ox (%): 92 - Studies Microbiology Data (last 24 hrs): 03/05/21 12:17 Blood - Blood Aerobic Blood Culture - Final No growth in 5 days. 03/05/21 12:17 Blood - Blood Anaerobic Blood Culture - Final No growth in 5 days. 03/05/21 12:07 Blood - Blood Aerobic Blood Culture - Final No growth in 5 days. 03/05/21 12:07 Blood - Blood Anaerobic Blood Culture - Final No growth in 5 days. Medications List Reviewed: Yes Assessment & Plan Discharge Plan: Home Plan to discharge in: 48 Hours Physician Review Additional Text: COVID: Positive, unvaccinated CT Scan: COMPARISON: March 05, 2021 chest x-ray TECHNIQUE: Dynamically enhanced axial 3 mm thick images of the chest were obtained during administration of <100> mL Isovue 370 IV contrast. Coronal and oblique reconstruction images were generated and reviewed. Exam utilizes a protocol for optimal evaluation of pulmonary arterial tree. Maximum intensity projections 3D imaging was utilized All CT scans are performed using dose optimization technique as appropriate and may include automated exposure control or mA/KV adjustment according to patient size. FINDINGS: Left lower lobe pulmonary emboli. Main pulmonary and right pulmonary arteries are patent. A thoracic aortic aneurysm is not noted. A pleural effusion is not seen. A pericardial effusion is not seen. Moderate to marked bilateral ground-glass opacities within the lungs IMPRESSION: Left lower lobe pulmonary emboli Mild to moderate bilateral ground-glass opacities within the lungs can be seen with Covid pneumonia CT scan: COMPARISON: Head Brain Wo Cont dated 06/01/2018 TECHNIQUE: All CT scans are performed using dose optimization technique as appropriate and may include automated exposure control or mA/KV adjustment according to patient size. FINDINGS: No intracranial hemorrhage, hydrocephalus or extra-axial fluid collection.No areas of brain edema or evidence of midline shift. The paranasal sinuses and mastoids are clear. The calvarium is intact. IMPRESSION: No acute intracranial abnormality. ECHO: MEASUREMENTS (cm) DIASTOLIC (NORMALS) SYSTOLIC (NORMALS) IVSd 0.9 (0.6-1.2) LA Diam 2.5 (1.9-4.0) LVEF 55-60% LVIDd 5.0 (3.5-5.7) LVIDs 3.7 (2.0-3.5) %FS 25% LVPWd 0.9 (0.6-1.2) Ao Diam 2.8 (2.0-3.7) 2 DIMENSIONAL ASSESSMENT: RIGHT ATRIUM: NORMAL LEFT ATRIUM: NORMAL RIGHT VENTRICLE: NORMAL LEFT VENTRICLE: NORMAL TRICUSPID VALVE: MILD TRICUSPID REGURGITATION MITRAL VALVE: NORMAL PULMONIC VALVE: NORMAL AORTIC VALVE: NORMAL PERICARDIAL EFFUSION: NONE AORTIC ROOT: NORMAL LEFT VENTRICULAR WALL MOTION: NORMAL. DOPPLER/COLOR FLOW: MILD TRICUSPID REGURGITATION. COMMENTS: NORMAL LEFT VENTRICULAR EJECTION FRACTION 55-60%. NORMAL WALL MOTION. MILD TRICUSPID REGURGITATION. Follow-up chest x-ray 03/10/2021 COMPARISON: Chest Single View dated 03/05/2021; Chest Single View dated 11/03/2019; Chest Pa And Lat (2 Views) dated 10/06/2019; Chest Pa And Lat (2 Views) dated 07/25/2017; Chest For Pe Angio dated 03/05/2021 FINDINGS: Widespread moderate patchy bilateral airspace disease is similar to 06/14/2021. Increased prominence of the cardiac silhouette.No acute osseous abnormality. No significant pleural effusions or pneumothorax. IMPRESSION: Moderate bilateral widespread airspace disease is not simply c hanged compared with 03/05/2021. Physical exam: General: In no apparent distress, Oriented x3, Obese HEENT: Atraumatic, Normocephalic, PERRLA Neck: Supple, 2+ carotid pulse no bruit, JVD not distended Respiratory: Clear. Currently on 65% high flow. Cardiovascular: No edema, Normal pulses, Regular rate/rhythm, Normal S1 S2 Gastrointestinal: Normal bowel sounds, Soft and benign, Non-distended Musculoskeletal: No clubbing, No swelling Neurological: Normal gait, Normal speech, Normal strength at 5/5 x4 extr, Normal tone Impression: Dyspnea secondary to acute respiratory failure with bilateral Covid pneumonia complicated with left lower lobe pulmonary emboli, unvaccinated Elevated liver function tests DM with Hyperglycemia Bipolar disorder Obesity, BMI 35 Plan: Dyspnea secondary to acute respiratory failure with bilateral Covid pneumonia complicated with left lower lobe pulmonary emboli: Patient continues to improve. Stable on 6 L per nasal cannula. Continue to wean off oxygen. Maintain sats above 93%. CRP and ferritin improved. Will decrease IV Solu-Medrol. Continue with vitamin supplementation. Will monitor lab closely. Encourage incentive spirometer, proning and ambulation. DC Carney catheter. Patient remains on Eliquis 10 mg 1 pill twice daily. Patient will need at least 3 months of therapy. Continue to monitor closely. Anticipate improvement over the next 2 days. Elevated liver function tests: LFTs back to normal. DM with Hyperglycemia: Hemoglobin A1c 6.7. Continue Metformin. Continue Accu- Cheks and sliding scale. Bipolar disorder: Continue with Atarax 25 mg twice daily, lithium 300 mg 3 times a day, Seroquel 200 mg at bedtime and Effexor 150 mg 1 pill twice daily. Obesity, BMI 35: Patient overall improved. Continue lifestyle modification education. CODE STATUS: Full code DVT prophylaxis: Vinny Advanced care [id number] minutes: Home at discharge Time Spent Managing Pts Care (In Minutes): 55
[2021-03-11] MEDS: INSULIN -REGULAR HUMAN 50 UNIT/0.5 ML ML SQ SCH ×4 (07:54→20:37)
[2021-03-11] MEDS: VENLAFAXINE HCL XR 75 MG CAP PO SCH ×2 (07:55→20:35)
[2021-03-11] MEDS: METFORMIN HCL 500 MG TAB PO SCH (07:55)
[2021-03-11] MEDS: APIXABAN 5 MG TABLET PO SCH ×2 (07:55→20:35)
[2021-03-11] MEDS: ASPIRIN 81 MG CHEWABLE TABLET PO SCH (07:55)
[2021-03-11] MEDS: hydrOXYzine HCL 25 MG TAB PO SCH ×2 (07:55→20:34)
[2021-03-11] MEDS: LITHIUM CARBONATE 300 MG TAB PO SCH ×3 (10:20→20:35)
[2021-03-11] MEDS: IVERMECTIN 3 MG TABLET PO SCH (10:21)
[2021-03-11] MEDS: QUETIAPINE 100MG TAB PO SCH (20:36)
[2021-03-12 06:07] LABS: Absolute Lymphocytes (CBC) 1.1 K/uL (0.7-4.9); Basophils % 0.1 % (0-1.3); Hematocrit 37.7 % (36.0-45.0); Lymphocytes % 8.6 % (15.3-44.8); MPV 8.5 fL (7.6-11.3); RBC Red Blood Cell Count 4.28 M/uL (3.86-4.86)
--- NOTE | 2021-03-12 06:17 | P.DS ---
Admission Date: 03/05/21 Discharge Date: 03/12/21 Primary Care Provider: Dr. Castorena Disposition: ROUTINE DISCHARGE Discharge Condition: GOOD Reason for Admission: SOB Consultations: Pulmonary-Dr. Soto Procedures: COVID: Positive, unvaccinated CT Scan: COMPARISON: March 05, 2021 chest x-ray TECHNIQUE: Dynamically enhanced axial 3 mm thick images of the chest were obtained during administration of <100> mL Isovue 370 IV contrast. Coronal and oblique reconstruction images were generated and reviewed. Exam utilizes a prot ocol for optimal evaluation of pulmonary arterial tree. Maximum intensity projections 3D imaging was utilized All CT scans are performed using dose optimization technique as appropriate and may include automated exposure control or mA/KV adjustment according to patient size. FINDINGS: Left lower lobe pulmonary emboli. Main pulmonary and right pulmonary arteries are patent. A thoracic aortic aneurysm is not noted. A pleural effusion is not seen. A pericardial effusion is not seen. Moderate to marked bilateral ground-glass opacities within the lungs IMPRESSION: Left lower lobe pulmonary emboli Mild to moderate bilateral ground-glass opacities within the lungs can be seen with Covid pneumonia CT scan: COMPARISON: Head Brain Wo Cont dated 06/01/2018 TECHNIQUE: All CT scans are performed using dose optimization technique as appropriate and may include automated exposure control or mA/KV adjustment according to patient size. FINDINGS: No intracranial hemorrhage, hydrocephalus or extra-axial fluid collection.No areas of brain edema or evidence of midline shift. The paranasal sinuses and mastoids are clear. The calvarium is intact. IMPRESSION: No acute intracranial abnormality. ECHO: MEASUREMENTS (cm) DIASTOLIC (NORMALS) SYSTOLIC (NORMALS) IVSd 0.9 (0.6-1.2) LA Diam 2.5 (1.9-4.0) LVEF 55-60% LVIDd 5.0 (3.5-5.7) LVIDs 3.7 (2.0-3.5) %FS 25% LVPWd 0.9 (0.6-1.2) Ao Diam 2.8 (2.0-3.7) 2 DIMENSIONAL ASSESSMENT: RIGHT ATRIUM: NORMAL LEFT ATRIUM: NORMAL RIGHT VENTRICLE: NORMAL LEFT VENTRICLE: NORMAL TRICUSPID VALVE: MILD TRICUSPID REGURGITATION MITRAL VALVE: NORMAL PULMONIC VALVE: NORMAL AORTIC VALVE: NORMAL PERICARDIAL EFFUSION: NONE AORTIC ROOT: NORMAL LEFT VENTRICULAR WALL MOTION: NORMAL. DOPPLER/COLOR FLOW: MILD TRICUSPID REGURGITATION. COMMENTS: NORMAL LEFT VENTRICULAR EJECTION FRACTION 55-60%. NORMAL WALL MOTION. MILD TRICUSPID REGURGITATION. Follow-up chest x-ray 03/10/2021 COMPARISON: Chest Single View dated 03/05/2021; Chest Single View dated 11/03/2019; Chest Pa And Lat (2 Views) dated 10/06/2019; Chest Pa And Lat (2 Views) dated 07/25/2017; Chest For Pe Angio dated 03/05/2021 FINDINGS: Widespread moderate patchy bilateral airspace disease is similar to 06/14/2021. Increased prominence of the cardiac silhouette.No acute osseous abnormality. No significant pleural effusions or pneumothorax. IMPRESSION: Moderate bilateral widespread airspace disease is not simply changed compared with 03/05/2021. Medical problem list: Dyspnea secondary to acute respiratory failure with bilateral Covid pneumonia complicated with left lower lobe pulmonary emboli, unvaccinated Elevated liver function tests DM with Hyperglycemia Bipolar disorder Obesity, BMI 35 Brief History of Present Illness: 55-year-old female with history of bipolar disorder, hyperlipidemia, COPD and diabetes. Patient presented with shortness of breath over the last 7 days. She had traveled to [facility] and felt sick. Patient was seen and evaluated in the emergency room. Patient found to be hypoxic. Patient admitted for treatment. Hospital Course: Patient presented with dyspnea secondary to acute respiratory failure with bilateral Covid pneumonia complicated with left lower lobe pulmonary emboli. Patient was admitted for treatment. Patient did well in the course of her stay. Patient received IV steroids with vitamin supplementation. Patient was seen by pulmonology. Patient also started on Eliquis for treatment of pulmonary embolism. At discharge patient remained stable on 4 L. Patient will continue with home oxygen to maintain sats above 93%. At discharge she will continue with 4 L per nasal cannula. At discharge the patient will continue with prednisone 20 mg 1 pill twice daily for 7 days then 1 pill once daily for 7 days. The patient will also continue with Eliquis 5 mg 1 pill twice daily. Patient has finished course of 7-day treatment at 10 mg 1 pill twice daily of Eliquis. Patient will continue with Eliquis for at least 3 months as recommended by pulmonology. At discharge the patient will also continue with vitamin supplementation including zinc 220 mg daily, thiamine 100 mg 1 pill twice daily, vitamin C 500 mg 1 pill 3 times a day, and vitamin D 2000 units 1 pill daily. Recommend to continue with COVID-19 isolation recommendations for at least 10 days. Recommend to continue incentive spirometer, proning and slow ambulation. Patient will be educated on pulmonary embolism and Eliquis. At discharge patient should continue with face mask use, handwashing and social distancing. At discharge the patient will follow-up with pulmonology in 1 week to follow-up his hospitalization and continue her care. Pulmonology will help patient continue with medication and wean off oxygen. Recommend follow-up with her PCP in 1 week to follow-up this hospitalization as well. Patient with elevated liver function. This has resolved. Patient with hyperglycemia with new diabetes mellitus type 2. Hemoglobin A1c 6.7. Patient was started on Metformin. Patient may continue with Metformin 500 mg daily. Recommend to monitor blood sugars at least twice daily. Recommend to maintain blood sugar less than 140 fasting and less than 200 after meals. Recommend to recheck hemoglobin A1c every 3 months to monitor progress. Recommend follow-up with PCP in 1 week to follow-up her care and monitor her diabetes. Patient with bipolar disorder. Overall stable. At discharge patient will continue with Atarax 25 mg 1 pill twice daily, lithium 300 mg 1 pill 3 times a day, Seroquel 200 mg at bedtime and Effexor 150 mg 1 pill twice daily. Lifestyle modification education provided. Vital Signs/Physical Exam: Temp Pulse Resp BP Pulse Ox 97.4 F 75 18 152/89 H 94 03/12/21 04:00 03/12/21 04:00 03/12/21 04:00 03/12/21 04:00 03/12/21 04:00 General: Alert, In no apparent distress, Oriented x3, Cooperative HEENT: Atraumatic Neck: Supple Respiratory: Clear to auscultation bilaterally, Other (Stable on 4 L) Cardiovascular: Normal pulses, Regular rate/rhythm Gastrointestinal: Normal bowel sounds Musculoskeletal: No erythema, No tenderness, No warmth Integumentary: No tenderness/swelling Neurological: Normal speech, Normal strength at 5/5 x4 extr, Normal tone Laboratory Data at Discharge: WBC 12.90 K/uL (4.3-10.9) H D 03/12/21 05:45 Hgb 12.5 g/dL (12.0-15.0) 03/12/21 05:45 Hct 37.7 % (36.0-45.0) 03/12/21 05:45 Plt Count 330 K/uL (152-406) 03/12/21 05:45 PT 18.6 SECONDS (9.5-12.5) H 03/05/21 12:10 INR 1.61 03/05/21 12:10 APTT Cancelled 03/07/21 10:00 Sodium 142 mmol/L (136-145) 03/11/21 04:38 Potassium 4.6 mmol/L (3.5-5.1) 03/11/21 04:38 BUN 19 mg/dL (7-18) H 03/11/21 04:38 Creatinine 0.69 mg/dL (0.55-1.3) 03/11/21 04:38 Glucose 173 mg/dL (74-106) H 03/11/21 04:38 Phosphorus 2.8 mg/dL (2.5-4.9) 03/11/21 04:38 Magnesium 2.6 mg/dL (1.8-2.4) H 03/11/21 04:38 Total Bilirubin 0.4 mg/dL (0.2-1.0) 03/11/21 04:38 AST 16 U/L (15-37) 03/11/21 04:38 ALT 42 U/L (12-78) 03/11/21 04:38 Alkaline Phosphatase 100 U/L (45-117) 03/11/21 04:38 Troponin I 0.14 ng/mL (0.0-0.045) H 03/05/21 18:15 Triglycerides 203 mg/dL (<150) H 03/05/21 12:07 Cholesterol 144 mg/dL (<200) 03/05/21 12:07 HDL Cholesterol 21 mg/dL (40-60) L 03/05/21 12:07 Cholesterol/HDL Ratio 6.86 03/05/21 12:07 Lipase 378 U/L (73-393) 03/05/21 12:10 Home Medications: Green Carbonate [Lithotabs *] 300 mg PO TID 03/09/21 Quetiapine [Seroquel*] 200 mg PO BEDTIME 03/09/21 Venlafaxine HCl [Effexor XR] 150 mg PO BID 03/09/21 hydrOXYzine HCL [Atarax*] 25 mg PO BID 03/09/21 Apixaban [Eliquis] 5 mg PO BID #60 tablet 03/12/21 Ascorbate Calcium [Vitamin C] 500 mg PO TID #90 tablet 03/12/21 Cholecalciferol (Vitamin D3) [Vitamin D 1000 Iu Tab] 2,000 unit PO DAILY #60 tab 03/12/21 Metformin HCl [Glucophage*] 500 mg PO DAILY WITH BREAKFAST #30 tab 03/12/21 Thiamine HCl 100 mg PO BID #60 tablet 03/12/21 Zinc Sulfate [Zinc Sulfate*] 220 mg PO DAILY #30 cap 03/12/21 predniSONE [Deltasone] 20 mg PO SEECOM #21 tab 03/12/21 New Medications: Apixaban [Eliquis] 5 mg PO BID #60 tablet Metformin HCl [Glucophage*] 500 mg PO DAILY WITH BREAKFAST #30 tab predniSONE [Deltasone] 20 mg PO SEECOM #21 tab Thiamine HCl 100 mg PO BID #60 tablet Ascorbate Calcium [Vitamin C] 500 mg PO TID #90 tablet Cholecalciferol (Vitamin D3) [Vitamin D 1000 Iu Tab] 2,000 unit PO DAILY #60 tab Zinc Sulfate [Zinc Sulfate*] 220 mg PO DAILY #30 cap Physician Discharge Instructions: Patient presented with dyspnea secondary to acute respiratory failure with bilateral Covid pneumonia complicated with left lower lobe pulmonary emboli. Patient was admitted for treatment. Patient did well in the course of her stay. Patient received IV steroids with vitamin supplementation. Patient was seen by pulmonology. Patient also started on Eliquis for treatment of pulmonary embolism. At discharge patient remained stable on 4 L. Patient will continue with home oxygen to maintain sats above 93%. At discharge she will continue with 4 L per nasal cannula. At discharge the patient will continue with prednisone 20 mg 1 pill twice daily for 7 days then 1 pill once daily for 7 days. The patient will also continue with Eliquis 5 mg 1 pill twice daily. Karine cruz has finished course of 7-day treatment at 10 mg 1 pill twice daily of Eliquis. Patient will continue with Eliquis for at least 3 months as recommended by pulmonology. At discharge the patient will also continue with vitamin supplementation including zinc 220 mg daily, thiamine 100 mg 1 pill twice daily, vitamin C 500 mg 1 pill 3 times a day, and vitamin D 2000 units 1 pill daily. Recommend to continue with COVID-19 isolation recommendations for at least 10 days. Recommend to continue incentive spirometer, proning and slow ambulation. Patient will be educated on pulmonary embolism and Eliquis. At discharge patient should continue with face mask use, handwashing and social distancing. At discharge the patient will follow-up with pulmonology in 1 week to follow-up his hospitalization and continue her care. Pulmonology will help patient continue with medication and wean off oxygen. Recommend follow-up with her PCP in 1 week to follow-up this hospitalization as well. Patient with elevated liver function. This has resolved. Patient with hyperglycemia with new diabetes mellitus type 2. Hemoglobin A1c 6.7. Patient was started on Metformin. Patient may continue with Metformin 500 mg daily. Recommend to monitor blood sugars at least twice daily. Recommend to maintain blood sugar less than 140 fasting and less than 200 after meals. Recommend to recheck hemoglobin A1c every 3 months to monitor progress. Recommend follow-up with PCP in 1 week to follow-up her care and monitor her diabetes. Patient with bipolar disorder. Overall stable. At discharge patient will continue with Atarax 25 mg 1 pill twice daily, lithium 300 mg 1 pill 3 times a day, Seroquel 200 mg at bedtime and Effexor 150 mg 1 pill twice daily. Lifestyle modification education provided. Diet: ADA Activity: Ad treasure Followup: Neno Castorena MD [Primary Care Provider] - Time spent managing pt's care (in minutes): 55
[2021-03-12 06:26] LABS: Albumin 2.4 g/dL (3.4-5.0); Bilirubin Total 0.4 mg/dL (0.2-1.0); C-Reactive Protein 3.69 mg/L (<3.00); Ferritin 745.8 ng/mL (8-388); Magnesium 2.6 mg/dL (1.8-2.4); Potassium 4.9 mmol/L (3.5-5.1); Protein, Total 6.2 g/dL (6.4-8.2)
[2021-03-12] MEDS: INSULIN -REGULAR HUMAN 50 UNIT/0.5 ML ML SQ SCH ×2 (07:30→11:18)
[2021-03-12] MEDS: METFORMIN HCL 500 MG TAB PO SCH (08:42)
[2021-03-12] MEDS: METHYLPREDNISOLONE 40 MG INJ IV SCH (08:42)
[2021-03-12] MEDS: hydrOXYzine HCL 25 MG TAB PO SCH (08:42)
[2021-03-12] MEDS: VENLAFAXINE HCL XR 75 MG CAP PO SCH (08:42)
[2021-03-12] MEDS: LITHIUM CARBONATE 300 MG TAB PO SCH ×2 (08:42→13:52)
[2021-03-12] MEDS: APIXABAN 5 MG TABLET PO SCH (08:43)
[2021-03-12] MEDS: ASPIRIN 81 MG CHEWABLE TABLET PO SCH (08:43)
[2021-03-12 09:28] LABS: Blood Morphology Comment NOT SEEN (NOT SEEN); Platelet Estimate ADEQ
[2021-03-12 15:44] VITALS: O2SAT 95
[2021-03-12 16:04] VITALS: BP 122/84; TEMP 96.8
== END 2021-03-12 16:10 | disposition home or self-care (01) | DRG 177 ==
LOC: ER 09:52 → ERHOLD 17:35 → 3RD-ICU 03-07 21:44 → 4TH 03-11 03:00
PROVIDERS: ADMIT Hospitalist; ATTEND Hospitalist
DX: U07.1 COVID-19 (principal); J12.82 Pneumonia due to coronavirus disease 2019; J96.00 Acute respiratory failure, unspecified whether with hypoxia or hypercapnia; I26.99 Other pulmonary embolism without acute cor pulmonale; R79.89 Other specified abnormal findings of blood chemistry; E11.65 Type 2 diabetes mellitus with hyperglycemia; F31.9 Bipolar disorder, unspecified; E66.9 Obesity, unspecified; Z68.35 Body mass index [BMI] 35.0-35.9, adult; J44.9 Chronic obstructive pulmonary disease, unspecified
CPT/HCPCS: 36415; 51702; 70450; 71045; 71275; 80048; 80053; 80061; 80076; 80178; 80202; 81003; 81015; 82728; 82805; 82947; 83036; 83605; 83690; 83735; 84100; 84132; 84145; 84439; 84443; 84484; 85025; 85379; 85610; 85730; 86140; 87040; 87070; 87081; 87804; 93005; 93306; 94002; 94003; 94640; 96361; 96365; 96366; 96367; 96372; 96375; 99285; C9113; J0692; J1644; J2920; J2930; J3370; J3480; J7030; J7040; J7050; Q9967; U0003